=== PATIENT | male | born 1945 | race Caucasian/White ===

== ENCOUNTER 2018-09-13 11:13 | Inpatient (IN) | payer MEDICARE, BC ==
--- NOTE | 2018-09-13 11:54 | ED Physician Chart ---
ED Chief Complaint/HPI - Patient Information Date Seen:: 09/13/18 Time Seen:: 11:46 Chief Complaint:: agitation ams History of Present Illness:: 73 [facility] with [facility] who saw him on the ground pt very agitated and has severe dementia over the last 10 yrs , he can only answer mainly to his name he has ticks and makes blowing noises and not following any commands Allergies:: Allergies Allergy/AdvReac Type Severity Reaction Status Date / Time No Known Allergies Allergy Verified 09/13/18 11:36 ED Review of Systems - Review of Systems General/Constitutional: No fever Head: No headache Eyes: No loss of vision ENT: No earache Neck: No neck pain Cardio Vascular: No chest pain Pulmonary: No SOB GI: No vomiting Psychiatric: Anxiety ED Past Medical History - Past Medical History Past Medical History: HTN, DM, Dyslipidemia ED Physical Exam - Physical Examination Head: Atraumatic Eyes: Lids, conjuctiva normal Skin: No rash ENMT: External ears, nose nl Neck: Nontender Respiratory: Nl effort/Exclusion Cardio Vascular: No murmur, gallop, rubs GI: No tenderness/rebounding/guarding ED Septic Shock - . Is Septic Shock (SBP<90, OR Lactate>4 mmol\L) present?: No ED Reassessment (Disposition) - Reassessment Reassessment:: agitation dementia - Diagnosis Diagnosis:: as above - Patient Disposition Admitted to:: Med/Surg Condition at Disposition:: Stable
[2018-09-13 12:12] LABS: % BASOPHILS 0.3 % (0.0-2.0); % EOSINOPHILS 2.2 % (0.0-5.0); % LYMPHOCYTES 20.7 % (20.0-50.0); % MONOCYTES 8.4 % (2.0-10.0); % NEUTROPHILS 68.4 % (40.0-80.0); EOSINOPHILE ABSOLUTE 0.2 Th/cmm (0.1-0.4); HEMATOCRIT 38.4 % (41.0-60); HEMOGLOBIN 12.7 gm/dL (12-16); MEAN CELL VOLUME 96.2 fl (80-99); MEAN CORPUSCULAR HEMOGLOBIN 31.8 pg (27.0-31.0); MEAN PLATELET VOLUME 8.8 fl; MONOCYTE ABSOLUTE 0.8 Th/cmm (0.3-1.0); NEUTROPHILE ABSOLUTE 6.8 Th/cmm (1.8-8.0); PLATELET COUNT 133 Th/cmm (150-400); RED CELL DISTRIBUTION WIDTH 13.2 % (11.5-20.0); WHITE BLOOD COUNT 9.8 Th/cmm (4.8-10.8)
[2018-09-13 12:25] LABS: ALB/GLOB RATIO 1.3 (1.0-1.8); ALBUMIN 3.3 gm/dL (4.2-5.5); ALKALINE PHOSPHATASE 47 U/L (34-104); ANION GAP 16.9 (7.0-16.0); BILIRUBIN,TOTAL 0.9 mg/dL (0.3-1.0); BUN - UREA NITROGEN 22 mg/dL (7-25); CARBON DIOXIDE 22.7 mEq/L (21.0-31.0); CHLORIDE 108 mEq/L (98-107); CREATININE - SERUM 0.6 mg/dL (0.7-1.3); GLUCOSE 147 mg/dL (70-105); POTASSIUM SERUM 3.6 mEq/L (3.5-5.1); SGOT 12 U/L (13-39); SGPT/ALT 12 U/L (7-52); SODIUM SERUM 144 mEq/L (136-145); TOTAL PROTEIN,SERUM 5.9 gm/dL (6.0-8.3)
[2018-09-13 15:52] VITALS: BP 152/100
[2018-09-13] MEDS ORDERED: Maalox 30 mL Cup PO PRN (16:54)
[2018-09-13] MEDS ORDERED: Magnesium Hydroxide (MOM) 30 mL UDC PO PRN (16:54)
[2018-09-13 17:12] LABS: CHOLESTEROL 80 mg/dL (<200); HDL -HIGH DENSITY LIPOPROTEIN 29 mg/dL (23-92); TRIGLYCERIDES 78 mg/dL (<150)
[2018-09-13] MEDS ORDERED: Dextrose 50% 50 mL Abboject IVP PRN (20:23)
[2018-09-13] MEDS ORDERED: GLUCAGON HCl 1 MG KIT IM PRN (20:23)
[2018-09-13] MEDS ORDERED: D3 PO SCH (21:00)
[2018-09-13] MEDS ORDERED: BOSWELLIA SERRA PO SCH (21:00)
[2018-09-13] MEDS ORDERED: BIFIDOBACTERIUM INFANTIS 4 MG PO SCH (21:00)
[2018-09-13] MEDS ORDERED: GLUCOSAMINE PO SCH (21:00)
[2018-09-13] MEDS: INSULIN LISPRO SLIDING SCALE 100 UNITS/ML UNIT SUBQ SCH (21:51)
[2018-09-14] MEDS: Levothyroxine 0.05 Mg Tab PO SCH (06:47)
[2018-09-14] MEDS: INSULIN LISPRO SLIDING SCALE 100 UNITS/ML UNIT SUBQ SCH ×4 (06:54→21:52)
[2018-09-14 08:22] LABS: % BASOPHILS 0.2 % (0.0-2.0); % EOSINOPHILS 2.8 % (0.0-5.0); % LYMPHOCYTES 19.3 % (20.0-50.0); % MONOCYTES 8.5 % (2.0-10.0); % NEUTROPHILS 69.2 % (40.0-80.0); EOSINOPHILE ABSOLUTE 0.2 Th/cmm (0.1-0.4); HEMOGLOBIN 12.8 gm/dL (12-16); LYMPHOCYTE ABSOLUTE 1.4 Th/cmm (1.5-3.0); MEAN CELL VOLUME 95.4 fl (80-99); MEAN CORPUSCULAR HEMOGLOBIN 32.1 pg (27.0-31.0); MEAN CORPUSCULAR HGB CONC 33.6 pg (28.0-36.0); MEAN PLATELET VOLUME 8.3 fl; MONOCYTE ABSOLUTE 0.6 Th/cmm (0.3-1.0); NEUTROPHILE ABSOLUTE 5.3 Th/cmm (1.8-8.0); PLATELET COUNT 147 Th/cmm (150-400); RED BLOOD COUNT 3.98 Mil/cmm (3.80-5.80); RED CELL DISTRIBUTION WIDTH 12.9 % (11.5-20.0); WHITE BLOOD COUNT 7.5 Th/cmm (4.8-10.8)
[2018-09-14] MEDS ORDERED: INSULIN DETEMIR 5 UNIT SQ SCH (08:30)
[2018-09-14 08:39] LABS: ANION GAP 13.9 (7.0-16.0); BUN - UREA NITROGEN 22 mg/dL (7-25); CALCIUM SERUM 8.8 mg/dL (8.6-10.3); CARBON DIOXIDE 22.5 mEq/L (21.0-31.0); CHLORIDE 106 mEq/L (98-107); CREATININE - SERUM 0.7 mg/dL (0.7-1.3); GLUCOSE 133 mg/dL (70-105); POTASSIUM SERUM 3.4 mEq/L (3.5-5.1); SODIUM SERUM 139 mEq/L (136-145); URIC ACID 4.1 mg/dL (4.4-7.6)
[2018-09-14] MEDS: Insulin Glargine 100 units/ml 10ml Vial SUBQ SCH (08:41)
[2018-09-14 08:57] LABS: ESR SEDIMENTATION SED RATE 54 mm/hr (0-20)
[2018-09-14] MEDS ORDERED: Non-Formulary Item 1 EA (Atorvastatin Calcium [Lipitor] 40 MG) PO SCH (09:00)
[2018-09-14] MEDS: Multivitamin Tab PO SCH (09:16)
--- NOTE | 2018-09-14 09:55 | History and Physical ---
History of Present Illness - HPI Chief Complaint: 73 y/o male patient with severe Dementia was brought into ER due to Agitation. HPI: 73 y/o male patient with severe Dementia was admitted to [facility] due to Agitation. Patient has history of Dementia. Patient had an ER assessment and a complete workup was done. Patient was diagnosed with severe Dementia and Agitated. Patient will have a Psych consult and I will continue to follow, treat and monitor patient. Patient will continue present treatment plan as ordered. Vital Signs: Last Vital Signs Temp 97.3 F 09/14/18 06:19 Pulse 63 09/14/18 09:15 Resp 19 09/14/18 06:19 BP 129/96 09/14/18 09:15 Pulse Ox 95 09/14/18 06:19 Past Medical History Cardiovascular: Report: No Pertinent Hx Pulmonary: Report: No Pertinent Hx [employer]: Report: Dementia GI: Report: No Pertinent Hx Psych: Report: Other (Agitation) Musculoskeletal: Report: No Pertinent Hx Infectious Disease: Report: No Pertinent Hx Renal/: Report: No Pertinent Hx Endocrine: Report: No Pertinent Hx Dermatology: Report: No Pertinent Hx - Past Surgical History Past Surgical History: No pertinent Hx Family Medical History - Family Member Father Ethnicity: Non- Living Status: Hx Family Cancer: No Hx Family Coronary Artery Disease: No Hx Family Congestive Heart Failure: No Hx Family Hypertension: Yes Hx Family Stroke: No Hx Family Diabetes: Yes Hx Family Seizures: No Hx Family Dementia: Yes Hx Family AIDS: No Hx Family HIV: No Hx Family COPD: No Hx Family Hepatitis: No Hx Family Psychiatric Problems: Yes Hx Family Tuberculosis: No Other Medical History: Dementia Social History Smoke: No Alcohol: None Drugs: None Lives: [facility] Domestic Violence: Negative Health Maintenance Health Maintenance: Other (see chart.) - Medications Home Medications: Home Medication Medication Instructions Recorded Type Aspirin [Adult Aspirin] 81 mg PO HS 09/13/18 History Atorvastatin Calcium [Lipitor] 40 mg PO DAILY 09/13/18 History Bifidobacterium Infantis [Align] 4 mg PO HS 09/13/18 History Cyanocobalamin [Vitamin B12] 1,000 mcg PO DAILY 09/13/18 History Divalproex Sodium [Depakote] 250 mg PO BID 09/13/18 History Donepezil HCl [Aricept] 10 mg PO HS 09/13/18 History Finasteride [Proscar] 5 mg PO DAILY 09/13/18 History Glucosamine/D3/Boswellia Liza 1 tab PO HS 09/13/18 History [Osteo Bi-Flex Tablet] Insulin Detemir [Levemir Insulin] 5 units SQ QDPC 09/13/18 History Levothyroxine Sodium [Levoxyl] 50 mcg PO DAILY 09/13/18 History Loperamide HCl [Imodium A-D] 2 mg PO DAILY 09/13/18 History Lorazepam [Ativan] 1 mg PO QID 09/13/18 History Losartan Potassium 50 mg PO DAILY 09/13/18 History Memantine [Namenda] 10 mg PO DAILY 09/13/18 History Metformin HCl 500 mg PO BID 09/13/18 History Oxybutynin Chloride [Ditropan*] 5 mg PO HS 09/13/18 History Vitamin D 1,000 iu PO DAILY 09/13/18 History Other Medications: Please see medication reconciliation sheet. - Allergies Allergies/Adverse Reactions: Allergies Allergy/AdvReac Type Severity Reaction Status Date / Time lactose Allergy Verified 09/13/18 21:08 latex Allergy Verified 09/13/18 21:07 Review of Systems - Review of Systems Review of Systems: Patient has severe Dementia and is easily agitated. Constitutional: Report: No Significant Eyes: Report: No Significant ENT: Report: No Significant Respiratory: Report: No Significant Cardiovascular: Report: No Significant Gastrointestinal: Report: No Significant Genitourinary: Report: No Significant Musculoskeletal: Report: No Significant Skin: Report: No Significant Neurological: Report: Other (Agiatation and severe Dementia.) Physical Exam - Physical Exam HEENT: Report: Ears Nose Throat within normal limits Neck: Report: Within normal limits Cardiovascular Systems: Report: +s1/s2 noted Respiratory: Report: Breath Sounds are within normal limits Abdomen: Report: Non-tender to palpation Back: Report: Inspection of back is within normal limits. Extremities: Report: Non-tender to palpation. Skin: Report: Color of skin is within normal limits Neuro/Psych: Report: Other (Agitation.) - Lab Results All Lab Results last 24 hours: Laboratory Results - last 24 hr 09/13/18 09/13/18 09/13/18 12:04 12:04 12:04 WBC 9.8 RBC 4.00 Hgb 12.7 Hct 38.4 L MCV 96.2 MCH 31.8 H MCHC Differential 33.0 RDW 13.2 Plt Count 133 L MPV 8.8 Neutrophils % 68.4 Lymphocytes % 20.7 Monocytes % 8.4 Eosinophils % 2.2 Basophils % 0.3 ESR Sodium 144 Potassium 3.6 Chloride 108 H Carbon Dioxide 22.7 Anion Gap 16.9 H BUN 22 Creatinine 0.6 L Est GFR ( Amer) TNP Est GFR (Non-Af Amer) TNP BUN/Creatinine Ratio 36.7 Glucose 147 H Uric Acid Calcium 9.0 Total Bilirubin 0.9 AST 12 L ALT 12 Alkaline Phosphatase 47 Total Protein 5.9 L Albumin 3.3 L Globulin 2.6 Albumin/Globulin Ratio 1.3 Triglycerides Cholesterol LDL Cholesterol Direct HDL Cholesterol TSH 2.09 09/13/18 09/14/18 09/14/18 12:04 08:15 08:15 WBC 7.5 RBC 3.98 Hgb 12.8 Hct 38.0 L MCV 95.4 MCH 32.1 H MCHC Differential 33.6 RDW 12.9 Plt Count 147 L MPV 8.3 Neutrophils % 69.2 Lymphocytes % 19.3 L Monocytes % 8.5 Eosinophils % 2.8 Basophils % 0.2 ESR 54 H Sodium 139 Potassium 3.4 L Chloride 106 Carbon Dioxide 22.5 Anion Gap 13.9 BUN 22 Creatinine 0.7 Est GFR ( Amer) TNP Est GFR (Non-Af Amer) TNP BUN/Creatinine Ratio 31.4 Glucose 133 H Uric Acid 4.1 L Calcium 8.8 Total Bilirubin AST ALT Alkaline Phosphatase Total Protein Albumin Globulin Albumin/Globulin Ratio Triglycerides 78 Cholesterol 80 LDL Cholesterol Direct 40 L HDL Cholesterol 29 TSH - Assessment Assessment: Severe Dementia. Agitation. - Plan Plan: Continuation of care Continue present meds as directed Monitor labs, diet Psych consult Fall precaution Continue present treatment plan.
[2018-09-14] MEDS: Lactobacillus Rhamnosus GG 15 Billion CFU CAP.SPRINK PO SCH (11:00)
--- NOTE | 2018-09-14 13:36 | Diagnostic Imaging Report ---
EXAM: Right knee joint HISTORY: Pain COMPARISON: None FINDINGS: Multiple views of the right knee joint reviewed. The study demonstrates no evidence of fracture or dislocation. Mild degenerative changes with narrowing of joint space appreciated. There is no evidence for joint effusion. The patella is intact. If clinically indicated ligamentous or meniscal injury is considered MRI examination might be helpful. Vascular calcifications noted. IMPRESSION: Mild degenerative narrowing of the right knee joint space.
--- NOTE | 2018-09-14 13:37 | Diagnostic Imaging Report ---
Exam: Left knee joint HISTORY : Pain swelling Prior exam: None Findings: Multiple views of left knee joint reviewed. The study demonstrates no evidence for acute fracture dislocation. Mild degenerative narrowing of joint space appreciated. Vascular calcifications noted. If ligamentous or meniscal injury suspected MRI examination might be helpful. IMPRESSION: mild degenerative narrowing of the left knee joint space.
[2018-09-14] MEDS: Sulfamethoxazole/TMP 800/160mg Tab PO SCH (16:52)
--- NOTE | 2018-09-14 20:59 | Consultation ---
DATE OF CONSULTATION: 09/14/2018 INFECTIOUS DISEASE CONSULTATION REFERRING PHYSICIAN: Deb Altman M.D. REASON FOR CONSULTATION: Left knee cellulitis, left leg cellulitis. HISTORY OF PRESENT ILLNESS: The patient is a 73-year-old male with a past medical history of dementia, hypertension, diabetes mellitus type 2, and dyslipidemia, found to be agitated at [facility]. His saw him on the ground and very agitated. He is unable to give any history. On initial evaluation, the patient's temperature was 98.5 degree Fahrenheit and WBC count was 9800. It was noted that the patient's left knee and left leg was swollen and red. Cellulitis was diagnosed and the patient was started on Keflex. I was called for ID consultation. Levaquin was added. As per the staff, there is no significant change noted. No fever. PAST MEDICAL HISTORY: Diabetes mellitus type 2, hypertension, and dyslipidemia. ALLERGIES: LACTOSE AND LATEX. SOCIAL HISTORY: The patient lives in nursing facility. No history of smoking, alcohol, or drug use. FAMILY HISTORY: Not available. REVIEW OF SYSTEMS: As mentioned in HPI; otherwise, the patient is not giving any history. PHYSICAL EXAMINATION: VITAL SIGNS: Current vital signs shows temperature of 97.3, pulse of 63, respirations 19, and blood pressure of 129/96. GENERAL: The patient is comfortable, lying in the bed, not in acute distress. HEENT: Head is normocephalic, atraumatic. Oral cavity moist, pink tongue. NECK: Supple, no JVD, no carotid bruit. Trachea in midline. CHEST: Bilateral vesicular breath sounds. No crackles or wheezing. HEART: S1, S2 within normal limits. Regular rhythm. No murmur, no gallop. ABDOMEN: Soft, nontender, nondistended. Bowel sounds present. NEUROLOGIC: He is alert, awake, oriented x 3. EXTREMITIES: No cyanosis, no clubbing, no edema. The patient's left knee is mildly swollen and erythematous involving superficial skin. Lower leg is also mildly erythematous and swollen noticed mainly on the posterior part of lower leg. No open wound. CENTRAL NERVOUS SYSTEM: He is alert and awake. Aphasic. He is not communicating well. LABORATORY DATA: Current lab shows WBC count of 7500, hemoglobin of 12.9, hematocrit of 38.0, platelets are 147,000, and neutrophils 69%. Sodium is 139, potassium is 3.4, chloride is 106, bicarbonate is 22, BUN is 22, creatinine is 0.7, and glucose is 133. Blood culture 2 sets negative. IMPRESSION: 1. Left knee cellulitis. 2. Left leg cellulitis. 3. Diabetes mellitus type 2. 4. Hypertension. 5. Dementia. RECOMMENDATIONS: We will continue Keflex. Change Levaquin to Bactrim. Thank you, Dr. Deb Altman, for involving me in taking care of this patient. JOB# [id number]
--- NOTE | 2018-09-14 23:52 | Psychiatric Evaluation ---
DATE OF SERVICE: 09/13/2018 IDENTIFYING DATA: The patient is a 73-year-old resident of a long term facility. Information obtained by directly interviewing the patient as well as reviewing the admission papers. JUSTIFICATION FOR HOSPITALIZATION: The patient is admitted over here for acute agitation. Staff was spoken to. The patient is interviewed. The patient has not been able to verbalize much, but the patient has been however trying to reach to hit himself. The patient has to be put mittens to his both the hands. The patient is at this time, confused and demented, not verbalizing much at this time. PAST PSYCHIATRIC HISTORY: Details are not known. MEDICAL HISTORY: Physical examination is requested to be done by Dr. Altman. SUBSTANCE ABUSE HISTORY: None. PHYSICAL OR SEXUAL ABUSE HISTORY: None. LEGAL PROBLEMS: None at this time. STRENGTH AND ASSETS: The patient seems to be motivated. MENTAL STATUS EXAMINATION: The patient is a 73-year-old, looking his stated age, superficially cooperative. Eye contact is fair. Mood is noted to be irritable. The patient is nonverbal at this time. I am not able to decipher any of the paranoid delusions or auditory hallucinations at this time. The patient is reported to have been very agitated and has been getting aggressive at the facility. DIAGNOSTIC IMPRESSION: AXIS I: Psychotic disorder, not otherwise specified. AXIS IB: Dementia and behavioral changes, secondary trait. AXIS II: None. AXIS III: As per Dr. Altman. IMMEDIATE TREATMENT PLAN: The patient is going to be observed on the inpatient unit, provided with supportive psychotherapy. The patient is going to be closely monitored. I encouraged to verbalize the concerns rather than to act out. The patient is going to be closely monitored and continued or the p.r.n. doses of the Ambien and Ativan and the patient is also going to be placed on the valproic acid 250 mg 1 twice a day and the patient is going to be continued on close monitored with the behavior and then need for the antipsychotic medication is going to be addressed. JOB# [id number]
[2018-09-15] MEDS: Levothyroxine 0.05 Mg Tab PO SCH (06:36)
[2018-09-15] MEDS: INSULIN LISPRO SLIDING SCALE 100 UNITS/ML UNIT SUBQ SCH ×4 (06:49→21:16)
[2018-09-15] MEDS: Insulin Glargine 100 units/ml 10ml Vial SUBQ SCH (09:04)
[2018-09-15] MEDS: Sulfamethoxazole/TMP 800/160mg Tab PO SCH ×2 (09:05→17:46)
[2018-09-15] MEDS: Multivitamin Tab PO SCH (09:06)
[2018-09-15] MEDS: Lactobacillus Rhamnosus GG 15 Billion CFU CAP.SPRINK PO SCH (09:06)
--- NOTE | 2018-09-15 12:51 | Infectious Disease Prog Note ---
Infectious Disease Subjective - Review of Systems Service Date: 09/15/18 Subjective: Doing better, Infectious Disease Objective - Results Result Diagrams: 09/14/18 08:15 09/14/18 08:15 Recent Labs: Laboratory Last Values WBC 7.5 Th/cmm (4.8-10.8) 09/14/18 08:15 RBC 3.98 Mil/cmm (3.80-5.80) 09/14/18 08:15 Hgb 12.8 gm/dL (12-16) 09/14/18 08:15 Hct 38.0 % (41.0-60) L 09/14/18 08:15 MCV 95.4 fl (80-99) 09/14/18 08:15 MCH 32.1 pg (27.0-31.0) H 09/14/18 08:15 MCHC Differential 33.6 pg (28.0-36.0) 09/14/18 08:15 RDW 12.9 % (11.5-20.0) 09/14/18 08:15 Plt Count 147 Th/cmm (150-400) L 09/14/18 08:15 MPV 8.3 fl 09/14/18 08:15 Neutrophils % 69.2 % (40.0-80.0) 09/14/18 08:15 Lymphocytes % 19.3 % (20.0-50.0) L 09/14/18 08:15 Monocytes % 8.5 % (2.0-10.0) 09/14/18 08:15 Eosinophils % 2.8 % (0.0-5.0) 09/14/18 08:15 Basophils % 0.2 % (0.0-2.0) 09/14/18 08:15 ESR 54 mm/hr (0-20) H 09/14/18 08:15 Sodium 139 mEq/L (136-145) 09/14/18 08:15 Potassium 3.4 mEq/L (3.5-5.1) L 09/14/18 08:15 Chloride 106 mEq/L (98-107) 09/14/18 08:15 Carbon Dioxide 22.5 mEq/L (21.0-31.0) 09/14/18 08:15 Anion Gap 13.9 (7.0-16.0) 09/14/18 08:15 BUN 22 mg/dL (7-25) 09/14/18 08:15 Creatinine 0.7 mg/dL (0.7-1.3) 09/14/18 08:15 Est GFR ( Amer) TNP 09/14/18 08:15 Est GFR (Non-Af Amer) TNP 09/14/18 08:15 BUN/Creatinine Ratio 31.4 09/14/18 08:15 Glucose 133 mg/dL (70-105) H 09/14/18 08:15 Uric Acid 4.1 mg/dL (4.4-7.6) L 09/14/18 08:15 Calcium 8.8 mg/dL (8.6-10.3) 09/14/18 08:15 Total Bilirubin 0.9 mg/dL (0.3-1.0) 09/13/18 12:04 AST 12 U/L (13-39) L 09/13/18 12:04 ALT 12 U/L (7-52) 09/13/18 12:04 Alkaline Phosphatase 47 U/L (34-104) 09/13/18 12:04 Total Protein 5.9 gm/dL (6.0-8.3) L 09/13/18 12:04 Albumin 3.3 gm/dL (4.2-5.5) L 09/13/18 12:04 Globulin 2.6 gm/dL 09/13/18 12:04 Albumin/Globulin Ratio 1.3 (1.0-1.8) 09/13/18 12:04 Triglycerides 78 mg/dL (<150) 09/13/18 12:04 Cholesterol 80 mg/dL (<200) 09/13/18 12:04 LDL Cholesterol Direct 40 mg/dL (75-193) L 09/13/18 12:04 HDL Cholesterol 29 mg/dL (23-92) 09/13/18 12:04 TSH 2.09 uIU/ml (0.34-5.60) 09/13/18 12:04 - Physical Exam Vitals and I&O: Vital Signs Temp 97.6 F 09/15/18 06:38 Pulse 68 09/15/18 09:07 Resp 19 09/15/18 06:38 BP 151/82 09/15/18 09:07 Pulse Ox 95 09/15/18 06:38 Intake & Output 09/14/18 09/15/18 09/15/18 18:59 06:59 18:59 Intake Total 900 120 Balance 900 120 Intake: Oral 900 120 Other: # Voids 4 1 # Bowel Movements 1 0 Active Medications: Current Medications Acetaminophen (Tylenol) 650 mg PO Q4HR PRN PRN Reason: Mild Pain / Temp above 100 Stop: 11/12/18 16:53 Al Hydrox/Mg Hydrox/Simethicone (Maalox) 30 ml PO Q4HR PRN PRN Reason: GI DISTRESS Stop: 11/12/18 16:53 Aspirin (Ecotrin) 81 mg PO HS [facility] Stop: 11/12/18 20:59 Last Admin: 09/14/18 21:51 Dose: 81 mg Atorvastatin Calcium (Lipitor) 40 mg PO HS [facility] Stop: 11/13/18 20:59 Last Admin: 09/14/18 21:49 Dose: 40 mg Cephalexin Monohydrate (Keflex) 500 mg PO QID [facility] Stop: 11/12/18 20:59 Last Admin: 09/15/18 09:06 Dose: 500 mg Cyanocobalamin (Vitamin B12) 1,000 mcg PO DAILY [facility] Stop: 11/13/18 08:59 Last Admin: 09/15/18 09:04 Dose: 1,000 mcg Dextrose (D50w) 50 ml IVP PRN PRN PRN Reason: Blood Glucose less than 70 Stop: 11/12/18 20:22 Dextrose (Glutose 40%) 18.75 gm PO PRN PRN PRN Reason: Blood Glucose less than 70 Stop: 11/12/18 20:22 Divalproex Sodium (Depakote Dr) 250 mg PO BID [facility]; Protocol Stop: 11/12/18 16:59 Last Admin: 09/15/18 09:07 Dose: 250 mg Donepezil HCl (Aricept) 10 mg PO HS [facility] Stop: 11/12/18 20:59 Last Admin: 09/14/18 21:49 Dose: 10 mg Finasteride (Proscar) 5 mg PO DAILY [facility]; Protocol Stop: 11/13/18 08:59 Last Admin: 09/15/18 09:06 Dose: 5 mg Glucagon (Glucagen) 1 mg IM PRN PRN PRN Reason: Blood Glucose less than 70 Stop: 11/12/18 20:22 Insulin Glargine (Lantus Insulin) 5 units SUBQ QDPC [facility] Stop: 11/13/18 08:29 Last Admin: 09/15/18 09:04 Dose: Not Given Insulin Human Lispro (Humalog Insulin Sliding Scale) 0 units SUBQ ACHS [facility]; Protocol Stop: 11/12/18 20:59 Last Admin: 09/15/18 11:43 Dose: 2 units Lactobacillus Rhamnosus (Culturelle 15b) 1 each PO DAILY [facility] Stop: 11/13/18 10:59 Last Admin: 09/15/18 09:06 Dose: 1 each Levothyroxine Sodium (Synthroid) 0.05 mg PO DAILY@0730 [facility] Stop: 11/13/18 07:29 Last Admin: 09/15/18 06:36 Dose: 0.05 mg Loperamide HCl (Imodium) 2 mg PO DAILY [facility] Stop: 11/13/18 08:59 Last Admin: 09/15/18 09:07 Dose: 2 mg Lorazepam (Ativan) 0.5 mg PO Q4HR PRN; Protocol PRN Reason: Agitation Stop: 11/12/18 16:46 Lorazepam (Ativan) 1 mg PO QID [facility]; Protocol Stop: 11/13/18 12:59 Last Admin: 09/15/18 09:06 Dose: 1 mg Losartan Potassium (Cozaar) 50 mg PO DAILY [facility] Stop: 11/13/18 08:59 Last Admin: 09/15/18 09:07 Dose: 50 mg Magnesium Hydroxide (Milk Of Magnesia) 30 ml PO HS PRN PRN Reason: Constipation Memantine (Namenda) 10 mg PO DAILY [facility] Stop: 11/13/18 08:59 Last Admin: 09/15/18 09:07 Dose: 10 mg Metformin HCl (Glucophage) 500 mg PO BID [facility] Stop: 11/12/18 16:59 Last Admin: 09/15/18 09:06 Dose: 500 mg Miscellaneous (Glucosamine/D3/Boswellia Liza [Osteo Bi-Flex Tablet]) 1 tab PO HS [facility] Stop: 11/12/18 20:59 Multivitamins/Vitamin C (Theragran) 1 tab PO DAILY [facility] Stop: 11/13/18 08:59 Last Admin: 09/15/18 09:06 Dose: 1 tab Oxybutynin Chloride (Ditropan) 5 mg PO HS [facility] Stop: 11/12/18 20:59 Last Admin: 09/14/18 21:51 Dose: 5 mg Trimethoprim/Sulfamethoxazole (Bactrim Ds) 1 tab PO BID [facility] Stop: 11/13/18 16:59 Last Admin: 09/15/18 09:05 Dose: 1 tab Vitamin D (Vitamin D) 1,000 iu PO DAILY [facility] Stop: 11/13/18 08:59 Last Admin: 09/15/18 09:05 Dose: 1,000 iu Zolpidem Tartrate (Ambien) 5 mg PO HS PRN PRN Reason: Insomnia Stop: 11/12/18 16:53 Last Admin: 09/13/18 21:55 Dose: 5 mg General: no acute distress, well developed, well nourished HEENT: atraumatic, normocephalic, PERRLA, EOMI Neck: supple, no thyromegaly Cardiovascular: S1S2, regular Lungs: clear to auscultation bilaterally, clear to percussion Abdomen: soft, no tender, no distended Extremities: other (erythema has resolved, no more swelling.), no cyanosis, no clubbing, no edema Neurological: awake, alert Skin: intact Infectious Disease Assmt/Plan - Assessment Assessment: 1. Cellulitis of the left leg. 2. Cellulitis of left knee. - Plan Plan: Continue antibiotics for 5 more days.
--- NOTE | 2018-09-15 17:08 | Internal Medicine Prog Note ---
Internal Medicine Subjective - Subjective Service Date: 09/15/18 Patient seen and examined:: with staff Patient is:: awake Per staff patient has:: tolerating meds Internal Medicine Objective - Results Result Diagrams: 09/14/18 08:15 09/14/18 08:15 Recent Labs: Laboratory Last Values WBC 7.5 Th/cmm (4.8-10.8) 09/14/18 08:15 RBC 3.98 Mil/cmm (3.80-5.80) 09/14/18 08:15 Hgb 12.8 gm/dL (12-16) 09/14/18 08:15 Hct 38.0 % (41.0-60) L 09/14/18 08:15 MCV 95.4 fl (80-99) 09/14/18 08:15 MCH 32.1 pg (27.0-31.0) H 09/14/18 08:15 MCHC Differential 33.6 pg (28.0-36.0) 09/14/18 08:15 RDW 12.9 % (11.5-20.0) 09/14/18 08:15 Plt Count 147 Th/cmm (150-400) L 09/14/18 08:15 MPV 8.3 fl 09/14/18 08:15 Neutrophils % 69.2 % (40.0-80.0) 09/14/18 08:15 Lymphocytes % 19.3 % (20.0-50.0) L 09/14/18 08:15 Monocytes % 8.5 % (2.0-10.0) 09/14/18 08:15 Eosinophils % 2.8 % (0.0-5.0) 09/14/18 08:15 Basophils % 0.2 % (0.0-2.0) 09/14/18 08:15 ESR 54 mm/hr (0-20) H 09/14/18 08:15 Sodium 139 mEq/L (136-145) 09/14/18 08:15 Potassium 3.4 mEq/L (3.5-5.1) L 09/14/18 08:15 Chloride 106 mEq/L (98-107) 09/14/18 08:15 Carbon Dioxide 22.5 mEq/L (21.0-31.0) 09/14/18 08:15 Anion Gap 13.9 (7.0-16.0) 09/14/18 08:15 BUN 22 mg/dL (7-25) 09/14/18 08:15 Creatinine 0.7 mg/dL (0.7-1.3) 09/14/18 08:15 Est GFR ( Amer) TNP 09/14/18 08:15 Est GFR (Non-Af Amer) TNP 09/14/18 08:15 BUN/Creatinine Ratio 31.4 09/14/18 08:15 Glucose 133 mg/dL (70-105) H 09/14/18 08:15 Uric Acid 4.1 mg/dL (4.4-7.6) L 09/14/18 08:15 Calcium 8.8 mg/dL (8.6-10.3) 09/14/18 08:15 Total Bilirubin 0.9 mg/dL (0.3-1.0) 09/13/18 12:04 AST 12 U/L (13-39) L 09/13/18 12:04 ALT 12 U/L (7-52) 09/13/18 12:04 Alkaline Phosphatase 47 U/L (34-104) 09/13/18 12:04 Total Protein 5.9 gm/dL (6.0-8.3) L 09/13/18 12:04 Albumin 3.3 gm/dL (4.2-5.5) L 09/13/18 12:04 Globulin 2.6 gm/dL 09/13/18 12:04 Albumin/Globulin Ratio 1.3 (1.0-1.8) 09/13/18 12:04 Triglycerides 78 mg/dL (<150) 09/13/18 12:04 Cholesterol 80 mg/dL (<200) 09/13/18 12:04 LDL Cholesterol Direct 40 mg/dL (75-193) L 09/13/18 12:04 HDL Cholesterol 29 mg/dL (23-92) 09/13/18 12:04 TSH 2.09 uIU/ml (0.34-5.60) 09/13/18 12:04 - Physical Exam Vitals and I&O: Vital Signs Temp 98.6 F 09/15/18 14:00 Pulse 64 09/15/18 14:00 Resp 20 09/15/18 14:00 BP 133/66 09/15/18 14:00 Pulse Ox 97 09/15/18 14:00 Intake & Output 09/14/18 09/15/18 09/15/18 18:59 06:59 18:59 Intake Total 900 120 Balance 900 120 Intake: Oral 900 120 Other: # Voids 4 1 # Bowel Movements 1 0 Active Medications: Current Medications Acetaminophen (Tylenol) 650 mg PO Q4HR PRN PRN Reason: Mild Pain / Temp above 100 Stop: 11/12/18 16:53 Al Hydrox/Mg Hydrox/Simethicone (Maalox) 30 ml PO Q4HR PRN PRN Reason: GI DISTRESS Stop: 11/12/18 16:53 Aspirin (Ecotrin) 81 mg PO HS [facility] Stop: 11/12/18 20:59 Last Admin: 09/14/18 21:51 Dose: 81 mg Atorvastatin Calcium (Lipitor) 40 mg PO HS [facility] Stop: 11/13/18 20:59 Last Admin: 09/14/18 21:49 Dose: 40 mg Cephalexin Monohydrate (Keflex) 500 mg PO QID [facility] Stop: 11/12/18 20:59 Last Admin: 09/15/18 13:55 Dose: 500 mg Cyanocobalamin (Vitamin B12) 1,000 mcg PO DAILY [facility] Stop: 11/13/18 08:59 Last Admin: 09/15/18 09:04 Dose: 1,000 mcg Dextrose (D50w) 50 ml IVP PRN PRN PRN Reason: Blood Glucose less than 70 Stop: 11/12/18 20:22 Dextrose (Glutose 40%) 18.75 gm PO PRN PRN PRN Reason: Blood Glucose less than 70 Stop: 11/12/18 20:22 Divalproex Sodium (Depakote Dr) 250 mg PO BID [facility]; Protocol Stop: 11/12/18 16:59 Last Admin: 09/15/18 09:07 Dose: 250 mg Donepezil HCl (Aricept) 10 mg PO HS [facility] Stop: 11/12/18 20:59 Last Admin: 09/14/18 21:49 Dose: 10 mg Finasteride (Proscar) 5 mg PO DAILY [facility]; Protocol Stop: 11/13/18 08:59 Last Admin: 09/15/18 09:06 Dose: 5 mg Glucagon (Glucagen) 1 mg IM PRN PRN PRN Reason: Blood Glucose less than 70 Stop: 11/12/18 20:22 Insulin Glargine (Lantus Insulin) 5 units SUBQ QDPC [facility] Stop: 11/13/18 08:29 Last Admin: 09/15/18 09:04 Dose: Not Given Insulin Human Lispro (Humalog Insulin Sliding Scale) 0 units SUBQ ACHS [facility]; Protocol Stop: 11/12/18 20:59 Last Admin: 09/15/18 11:43 Dose: 2 units Lactobacillus Rhamnosus (Culturelle 15b) 1 each PO DAILY [facility] Stop: 11/13/18 10:59 Last Admin: 09/15/18 09:06 Dose: 1 each Levothyroxine Sodium (Synthroid) 0.05 mg PO DAILY@0730 [facility] Stop: 11/13/18 07:29 Last Admin: 09/15/18 06:36 Dose: 0.05 mg Loperamide HCl (Imodium) 2 mg PO DAILY [facility] Stop: 11/13/18 08:59 Last Admin: 09/15/18 09:07 Dose: 2 mg Lorazepam (Ativan) 0.5 mg PO Q4HR PRN; Protocol PRN Reason: Agitation Stop: 11/12/18 16:46 Lorazepam (Ativan) 1 mg PO QID [facility]; Protocol Stop: 11/13/18 12:59 Last Admin: 09/15/18 13:54 Dose: 1 mg Losartan Potassium (Cozaar) 50 mg PO DAILY [facility] Stop: 11/13/18 08:59 Last Admin: 09/15/18 09:07 Dose: 50 mg Magnesium Hydroxide (Milk Of Magnesia) 30 ml PO HS PRN PRN Reason: Constipation Memantine (Namenda) 10 mg PO DAILY [facility] Stop: 11/13/18 08:59 Last Admin: 09/15/18 09:07 Dose: 10 mg Metformin HCl (Glucophage) 500 mg PO BID [facility] Stop: 11/12/18 16:59 Last Admin: 09/15/18 09:06 Dose: 500 mg Miscellaneous (Glucosamine/D3/Boswellia Liza [Osteo Bi-Flex Tablet]) 1 tab PO HS [facility] Stop: 11/12/18 20:59 Multivitamins/Vitamin C (Theragran) 1 tab PO DAILY [facility] Stop: 11/13/18 08:59 Last Admin: 09/15/18 09:06 Dose: 1 tab Oxybutynin Chloride (Ditropan) 5 mg PO HS [facility] Stop: 11/12/18 20:59 Last Admin: 09/14/18 21:51 Dose: 5 mg Trimethoprim/Sulfamethoxazole (Bactrim Ds) 1 tab PO BID [facility] Stop: 11/13/18 16:59 Last Admin: 09/15/18 09:05 Dose: 1 tab Vitamin D (Vitamin D) 1,000 iu PO DAILY [facility] Stop: 11/13/18 08:59 Last Admin: 09/15/18 09:05 Dose: 1,000 iu Zolpidem Tartrate (Ambien) 5 mg PO HS PRN PRN Reason: Insomnia Stop: 11/12/18 16:53 Last Admin: 09/13/18 21:55 Dose: 5 mg HEENT: NC/AT, PERRLA Neck: Supple Lungs: CTAB Cardiovascular: RRR, Normal S1, Normal S2, without murmur Abdomen: soft, non-tender, non-distended, positive bowel sound Internal Medicine Assmt/Plan - Assessment Assessment: Severe Dementia. Agitation. cellulitis - Plan Plan: continue current plan of care
--- NOTE | 2018-09-16 04:21 | Progress Notes ---
DATE: 09/15/2018 PSYCHIATRIC PROGRESS NOTE SUBJECTIVE: Staff was spoken to. The patient is interviewed. Mood is noted to be irritable. Affect is constricted. The patient is not verbal and the patient has been trying to take a swing. The patient's coping skills at this time are noted to be very poor. The patient is currently on Depakote and has been able to tolerate the medication. ASSESSMENT: The patient is still impulsive and agitated. PLAN: To continue the patient with the supportive therapy and followup. [facility]# [id number]
[2018-09-16] MEDS: INSULIN LISPRO SLIDING SCALE 100 UNITS/ML UNIT SUBQ SCH ×4 (06:47→21:03)
[2018-09-16] MEDS: Levothyroxine 0.05 Mg Tab PO SCH (06:47)
[2018-09-16] MEDS: Insulin Glargine 100 units/ml 10ml Vial SUBQ SCH (08:30)
[2018-09-16] MEDS: Sulfamethoxazole/TMP 800/160mg Tab PO SCH ×2 (09:00→17:53)
[2018-09-16] MEDS: Multivitamin Tab PO SCH (09:00)
[2018-09-16] MEDS: Lactobacillus Rhamnosus GG 15 Billion CFU CAP.SPRINK PO SCH (11:37)
--- NOTE | 2018-09-16 13:26 | Internal Medicine Prog Note ---
Internal Medicine Subjective - Subjective Service Date: 09/16/18 Patient seen and examined:: with staff, chart reviewed Patient is:: awake, agitated Patient Complaints of:: other (Impulsive behavior.) Per staff patient has:: no adverse event, no episodes of fall, tolerating meds Internal Medicine Objective - Results Result Diagrams: 09/14/18 08:15 09/14/18 08:15 Recent Labs: Laboratory Last Values WBC 7.5 Th/cmm (4.8-10.8) 09/14/18 08:15 RBC 3.98 Mil/cmm (3.80-5.80) 09/14/18 08:15 Hgb 12.8 gm/dL (12-16) 09/14/18 08:15 Hct 38.0 % (41.0-60) L 09/14/18 08:15 MCV 95.4 fl (80-99) 09/14/18 08:15 MCH 32.1 pg (27.0-31.0) H 09/14/18 08:15 MCHC Differential 33.6 pg (28.0-36.0) 09/14/18 08:15 RDW 12.9 % (11.5-20.0) 09/14/18 08:15 Plt Count 147 Th/cmm (150-400) L 09/14/18 08:15 MPV 8.3 fl 09/14/18 08:15 Neutrophils % 69.2 % (40.0-80.0) 09/14/18 08:15 Lymphocytes % 19.3 % (20.0-50.0) L 09/14/18 08:15 Monocytes % 8.5 % (2.0-10.0) 09/14/18 08:15 Eosinophils % 2.8 % (0.0-5.0) 09/14/18 08:15 Basophils % 0.2 % (0.0-2.0) 09/14/18 08:15 ESR 54 mm/hr (0-20) H 09/14/18 08:15 Sodium 139 mEq/L (136-145) 09/14/18 08:15 Potassium 3.4 mEq/L (3.5-5.1) L 09/14/18 08:15 Chloride 106 mEq/L (98-107) 09/14/18 08:15 Carbon Dioxide 22.5 mEq/L (21.0-31.0) 09/14/18 08:15 Anion Gap 13.9 (7.0-16.0) 09/14/18 08:15 BUN 22 mg/dL (7-25) 09/14/18 08:15 Creatinine 0.7 mg/dL (0.7-1.3) 09/14/18 08:15 Est GFR ( Amer) TNP 09/14/18 08:15 Est GFR (Non-Af Amer) TNP 09/14/18 08:15 BUN/Creatinine Ratio 31.4 09/14/18 08:15 Glucose 133 mg/dL (70-105) H 09/14/18 08:15 POC Glucose 190 MG/DL (70 - 105) H 09/15/18 21:09 Uric Acid 4.1 mg/dL (4.4-7.6) L 09/14/18 08:15 Calcium 8.8 mg/dL (8.6-10.3) 09/14/18 08:15 Total Bilirubin 0.9 mg/dL (0.3-1.0) 09/13/18 12:04 AST 12 U/L (13-39) L 09/13/18 12:04 ALT 12 U/L (7-52) 09/13/18 12:04 Alkaline Phosphatase 47 U/L (34-104) 09/13/18 12:04 Total Protein 5.9 gm/dL (6.0-8.3) L 09/13/18 12:04 Albumin 3.3 gm/dL (4.2-5.5) L 09/13/18 12:04 Globulin 2.6 gm/dL 09/13/18 12:04 Albumin/Globulin Ratio 1.3 (1.0-1.8) 09/13/18 12:04 Triglycerides 78 mg/dL (<150) 09/13/18 12:04 Cholesterol 80 mg/dL (<200) 09/13/18 12:04 LDL Cholesterol Direct 40 mg/dL (75-193) L 09/13/18 12:04 HDL Cholesterol 29 mg/dL (23-92) 09/13/18 12:04 TSH 2.09 uIU/ml (0.34-5.60) 09/13/18 12:04 - Physical Exam Vitals and I&O: Vital Signs Temp 97.6 F 09/16/18 06:14 Pulse 88 09/16/18 11:39 Resp 18 09/16/18 06:14 BP 152/96 09/16/18 11:39 Pulse Ox 93 09/16/18 06:14 Intake & Output 09/15/18 09/16/18 09/16/18 18:59 06:59 18:59 Intake Total 920 Balance 920 Intake: Oral 920 Other: # Voids 2 # Bowel Movements 0 Active Medications: Current Medications Acetaminophen (Tylenol) 650 mg PO Q4HR PRN PRN Reason: Mild Pain / Temp above 100 Stop: 11/12/18 16:53 Al Hydrox/Mg Hydrox/Simethicone (Maalox) 30 ml PO Q4HR PRN PRN Reason: GI DISTRESS Stop: 11/12/18 16:53 Aspirin (Ecotrin) 81 mg PO [facility] Stop: 11/12/18 20:59 Last Admin: 09/15/18 21:57 Dose: 81 mg Atorvastatin Calcium (Lipitor) 40 mg PO HS [facility] Stop: 11/13/18 20:59 Last Admin: 09/15/18 21:57 Dose: 40 mg Cephalexin Monohydrate (Keflex) 500 mg PO QID [facility] Stop: 11/12/18 20:59 Last Admin: 09/16/18 09:30 Dose: 500 mg Cyanocobalamin (Vitamin B12) 1,000 mcg PO DAILY [facility] Stop: 11/13/18 08:59 Last Admin: 09/16/18 11:34 Dose: 1,000 mcg Dextrose (D50w) 50 ml IVP PRN PRN PRN Reason: Blood Glucose less than 70 Stop: 11/12/18 20:22 Dextrose (Glutose 40%) 18.75 gm PO PRN PRN PRN Reason: Blood Glucose less than 70 Stop: 11/12/18 20:22 Divalproex Sodium (Depakote Dr) 250 mg PO BID [facility]; Protocol Stop: 11/12/18 16:59 Last Admin: 09/16/18 09:00 Dose: 250 mg Donepezil HCl (Aricept) 10 mg PO [facility] Stop: 11/12/18 20:59 Last Admin: 09/15/18 21:57 Dose: 10 mg Finasteride (Proscar) 5 mg PO DAILY [facility]; Protocol Stop: 11/13/18 08:59 Last Admin: 09/16/18 09:30 Dose: 5 mg Glucagon (Glucagen) 1 mg IM PRN PRN PRN Reason: Blood Glucose less than 70 Stop: 11/12/18 20:22 Insulin Glargine (Lantus Insulin) 5 units SUBQ QDPC [facility] Stop: 11/13/18 08:29 Last Admin: 09/16/18 08:30 Dose: Not Given Insulin Human Lispro (Humalog Insulin Sliding Scale) 0 units SUBQ ACHS [facility]; Protocol Stop: 11/12/18 20:59 Last Admin: 09/16/18 11:30 Dose: Not Given Lactobacillus Rhamnosus (Culturelle 15b) 1 each PO DAILY [facility] Stop: 11/13/18 10:59 Last Admin: 09/16/18 11:37 Dose: 1 each Levothyroxine Sodium (Synthroid) 0.05 mg PO DAILY@0730 [facility] Stop: 11/13/18 07:29 Last Admin: 09/16/18 06:47 Dose: 0.05 mg Loperamide HCl (Imodium) 2 mg PO DAILY [facility] Stop: 11/13/18 08:59 Last Admin: 09/16/18 09:30 Dose: 2 mg Lorazepam (Ativan) 0.5 mg PO Q4HR PRN; Protocol PRN Reason: Agitation Stop: 11/12/18 16:46 Last Admin: 09/16/18 09:30 Dose: 0.5 mg Lorazepam (Ativan) 1 mg PO QID [facility]; Protocol Stop: 11/13/18 12:59 Last Admin: 09/16/18 11:39 Dose: 1 mg Losartan Potassium (Cozaar) 50 mg PO DAILY [facility] Stop: 11/13/18 08:59 Last Admin: 09/16/18 11:39 Dose: 50 mg Magnesium Hydroxide (Milk Of Magnesia) 30 ml PO HS PRN PRN Reason: Constipation Memantine (Namenda) 10 mg PO DAILY [facility] Stop: 11/13/18 08:59 Last Admin: 09/16/18 09:00 Dose: 10 mg Metformin HCl (Glucophage) 500 mg PO BID [facility] Stop: 11/12/18 16:59 Last Admin: 09/16/18 09:00 Dose: 500 mg Miscellaneous (Glucosamine/D3/Boswellia Liza [Osteo Bi-Flex Tablet]) 1 tab PO HS [facility] Stop: 11/12/18 20:59 Multivitamins/Vitamin C (Theragran) 1 tab PO DAILY [facility] Stop: 11/13/18 08:59 Last Admin: 09/16/18 09:00 Dose: 1 tab Oxybutynin Chloride (Ditropan) 5 mg PO HS [facility] Stop: 11/12/18 20:59 Last Admin: 09/15/18 21:57 Dose: 5 mg Trimethoprim/Sulfamethoxazole (Bactrim Ds) 1 tab PO BID [facility] Stop: 11/13/18 16:59 Last Admin: 09/16/18 09:00 Dose: 1 tab Vitamin D (Vitamin D) 1,000 iu PO DAILY [facility] Stop: 11/13/18 08:59 Last Admin: 09/16/18 09:00 Dose: 1,000 iu Zolpidem Tartrate (Ambien) 5 mg PO HS PRN PRN Reason: Insomnia Stop: 11/12/18 16:53 Last Admin: 09/13/18 21:55 Dose: 5 mg Physical Exam: 73 y/ patient is very irate and has been trying to take a swing, coping skills at times is very poor. General: other (Agitated.) HEENT: NC/AT, PERRLA Neck: Supple Lungs: CTAB Cardiovascular: RRR, Normal S1, Normal S2, without murmur Abdomen: soft, non-tender, non-distended, positive bowel sound Extremities: clear Neurological: no change Internal Medicine Assmt/Plan - Assessment Assessment: Severe Dementia. Agitation. Aggressive behavior. - Plan Plan: Continuation of care Continue present meds as directed Monitor labs, diet Psych consult Fall precaution Continue present treatment plan. Nutritional Asmnt/Malnutr-PDOC - Dietary Evaluation Malnutrition Findings (Please click <Entered> for more info): see orders.
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
--- NOTE | 2018-09-17 05:25 | Progress Notes ---
DATE: 09/16/[address] Dos Santos. SUBJECTIVE: The patient was resting in bed, alert, but confused. The patient was able to give his first name. The patient was not able to say why he is here, what had happened to him. The patient was not able to say where he was prior to coming here. The patient was not able to say how old he is and if he has any children. The patient did not respond when asked how he has been eating and sleeping or how he is feeling whether he is happy or sad. There was minimum verbal response. The patient has a mitten on his left hand, which the patient would bite on the mitten trying to remove it at times. OBJECTIVE: The staff reported that the patient has mitten on his hand because he tends to put his hand inside his pants and scratching his groin area. The patient also has cellulitis in his lower extremity and currently is on antibiotic for that. Staff reported that the patient is confused and not able to respond appropriately to most of the questions. The patient might say a word or two here and there. Staff reported that the patient is on 5150 hold, which will today. 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 The patient might have tactile hallucination leading to his scratching of his groin area. CURRENT MEDICATION: The patient is on Depakote 250 mg b.i.d., Aricept 10 mg at bedtime, Ativan 0.5 mg q. 4 hours p.r.n. as well as 1 mg q.i.d., Namenda 10 mg daily, Ambien 5 mg at bedtime p.r.n. PLAN: We will monitor the patient at this time. We will consider increasing Depakote for poor impulse control. We will monitor the patient for any psychotic symptoms and will use antipsychotic if appropriate. We will place the patient on 5250 for gravely disabled. JOB# [id number]
[2018-09-17] MEDS: Levothyroxine 0.05 Mg Tab PO SCH (06:37)
[2018-09-17] MEDS: INSULIN LISPRO SLIDING SCALE 100 UNITS/ML UNIT SUBQ SCH ×4 (06:38→20:30)
[2018-09-17] MEDS: Insulin Glargine 100 units/ml 10ml Vial SUBQ SCH (08:30)
[2018-09-17] MEDS: Lactobacillus Rhamnosus GG 15 Billion CFU CAP.SPRINK PO SCH (09:00)
[2018-09-17] MEDS: Sulfamethoxazole/TMP 800/160mg Tab PO SCH ×2 (09:00→18:11)
--- NOTE | 2018-09-17 10:18 | Internal Medicine Prog Note ---
Internal Medicine Subjective - Subjective Service Date: 09/17/18 Patient seen and examined:: with staff Patient is:: awake, agitated Patient Complaints of:: other (Irritable mood, confused, selectively mute, slow and delayed.) Per staff patient has:: no adverse event, no episodes of fall, tolerating meds Internal Medicine Objective - Results Result Diagrams: 09/14/18 08:15 09/14/18 08:15 Recent Labs: Laboratory Last Values WBC 7.5 Th/cmm (4.8-10.8) 09/14/18 08:15 RBC 3.98 Mil/cmm (3.80-5.80) 09/14/18 08:15 Hgb 12.8 gm/dL (12-16) 09/14/18 08:15 Hct 38.0 % (41.0-60) L 09/14/18 08:15 MCV 95.4 fl (80-99) 09/14/18 08:15 MCH 32.1 pg (27.0-31.0) H 09/14/18 08:15 MCHC Differential 33.6 pg (28.0-36.0) 09/14/18 08:15 RDW 12.9 % (11.5-20.0) 09/14/18 08:15 Plt Count 147 Th/cmm (150-400) L 09/14/18 08:15 MPV 8.3 fl 09/14/18 08:15 Neutrophils % 69.2 % (40.0-80.0) 09/14/18 08:15 Lymphocytes % 19.3 % (20.0-50.0) L 09/14/18 08:15 Monocytes % 8.5 % (2.0-10.0) 09/14/18 08:15 Eosinophils % 2.8 % (0.0-5.0) 09/14/18 08:15 Basophils % 0.2 % (0.0-2.0) 09/14/18 08:15 ESR 54 mm/hr (0-20) H 09/14/18 08:15 Sodium 139 mEq/L (136-145) 09/14/18 08:15 Potassium 3.4 mEq/L (3.5-5.1) L 09/14/18 08:15 Chloride 106 mEq/L (98-107) 09/14/18 08:15 Carbon Dioxide 22.5 mEq/L (21.0-31.0) 09/14/18 08:15 Anion Gap 13.9 (7.0-16.0) 09/14/18 08:15 BUN 22 mg/dL (7-25) 09/14/18 08:15 Creatinine 0.7 mg/dL (0.7-1.3) 09/14/18 08:15 Est GFR ( Amer) TNP 09/14/18 08:15 Est GFR (Non-Af Amer) TNP 09/14/18 08:15 BUN/Creatinine Ratio 31.4 09/14/18 08:15 Glucose 133 mg/dL (70-105) H 09/14/18 08:15 POC Glucose 190 MG/DL (70 - 105) H 09/15/18 21:09 Uric Acid 4.1 mg/dL (4.4-7.6) L 09/14/18 08:15 Calcium 8.8 mg/dL (8.6-10.3) 09/14/18 08:15 Total Bilirubin 0.9 mg/dL (0.3-1.0) 09/13/18 12:04 AST 12 U/L (13-39) L 09/13/18 12:04 ALT 12 U/L (7-52) 09/13/18 12:04 Alkaline Phosphatase 47 U/L (34-104) 09/13/18 12:04 Total Protein 5.9 gm/dL (6.0-8.3) L 09/13/18 12:04 Albumin 3.3 gm/dL (4.2-5.5) L 09/13/18 12:04 Globulin 2.6 gm/dL 09/13/18 12:04 Albumin/Globulin Ratio 1.3 (1.0-1.8) 09/13/18 12:04 Triglycerides 78 mg/dL (<150) 09/13/18 12:04 Cholesterol 80 mg/dL (<200) 09/13/18 12:04 LDL Cholesterol Direct 40 mg/dL (75-193) L 09/13/18 12:04 HDL Cholesterol 29 mg/dL (23-92) 09/13/18 12:04 TSH 2.09 uIU/ml (0.34-5.60) 09/13/18 12:04 - Physical Exam Vitals and I&O: Vital Signs Temp 98.1 F 09/17/18 06:40 Pulse 80 09/17/18 06:40 Resp 20 09/17/18 06:40 BP 116/76 09/17/18 06:40 Pulse Ox 96 09/17/18 06:40 Intake & Output 09/16/18 09/17/18 09/17/18 18:59 06:59 18:59 Intake Total 800 110 Balance 800 110 Intake: Oral 800 110 Other: # Voids 3 2 # Bowel Movements 1 0 Active Medications: Current Medications Acetaminophen (Tylenol) 650 mg PO Q4HR PRN PRN Reason: Mild Pain / Temp above 100 Stop: 11/12/18 16:53 Al Hydrox/Mg Hydrox/Simethicone (Maalox) 30 ml PO Q4HR PRN PRN Reason: GI DISTRESS Stop: 11/12/18 16:53 Aspirin (Ecotrin) 81 mg PO [facility] Stop: 11/12/18 20:59 Last Admin: 09/16/18 21:02 Dose: 81 mg Atorvastatin Calcium (Lipitor) 40 mg PO HS [facility] Stop: 11/13/18 20:59 Last Admin: 09/16/18 21:02 Dose: 40 mg Cephalexin Monohydrate (Keflex) 500 mg PO QID [facility] Stop: 11/12/18 20:59 Last Admin: 09/16/18 21:03 Dose: 500 mg Cyanocobalamin (Vitamin B12) 1,000 mcg PO DAILY [facility] Stop: 11/13/18 08:59 Last Admin: 09/16/18 11:34 Dose: 1,000 mcg Dextrose (D50w) 50 ml IVP PRN PRN PRN Reason: Blood Glucose less than 70 Stop: 11/12/18 20:22 Dextrose (Glutose 40%) 18.75 gm PO PRN PRN PRN Reason: Blood Glucose less than 70 Stop: 11/12/18 20:22 Divalproex Sodium (Depakote Dr) 250 mg PO BID [facility]; Protocol Stop: 11/12/18 16:59 Last Admin: 09/16/18 17:51 Dose: 250 mg Donepezil HCl (Aricept) 10 mg PO [facility] Stop: 11/12/18 20:59 Last Admin: 09/16/18 21:03 Dose: 10 mg Finasteride (Proscar) 5 mg PO DAILY [facility]; Protocol Stop: 11/13/18 08:59 Last Admin: 09/16/18 09:30 Dose: 5 mg Glucagon (Glucagen) 1 mg IM PRN PRN PRN Reason: Blood Glucose less than 70 Stop: 11/12/18 20:22 Insulin Glargine (Lantus Insulin) 5 units SUBQ QDPC [facility] Stop: 11/13/18 08:29 Last Admin: 09/16/18 08:30 Dose: Not Given Insulin Human Lispro (Humalog Insulin Sliding Scale) 0 units SUBQ ACHS [facility]; Protocol Stop: 11/12/18 20:59 Last Admin: 09/17/18 06:38 Dose: Not Given Lactobacillus Rhamnosus (Culturelle 15b) 1 each PO DAILY [facility] Stop: 11/13/18 10:59 Last Admin: 09/16/18 11:37 Dose: 1 each Levothyroxine Sodium (Synthroid) 0.05 mg PO DAILY@0730 [facility] Stop: 11/13/18 07:29 Last Admin: 09/17/18 06:37 Dose: 0.05 mg Loperamide HCl (Imodium) 2 mg PO DAILY [facility] Stop: 11/13/18 08:59 Last Admin: 09/16/18 09:30 Dose: 2 mg Lorazepam (Ativan) 0.5 mg PO Q4HR PRN; Protocol PRN Reason: Agitation Stop: 11/12/18 16:46 Last Admin: 09/16/18 09:30 Dose: 0.5 mg Lorazepam (Ativan) 1 mg PO QID [facility]; Protocol Stop: 11/13/18 12:59 Last Admin: 09/16/18 21:03 Dose: 1 mg Losartan Potassium (Cozaar) 50 mg PO DAILY [facility] Stop: 11/13/18 08:59 Last Admin: 09/16/18 11:39 Dose: 50 mg Magnesium Hydroxide (Milk Of Magnesia) 30 ml PO HS PRN PRN Reason: Constipation Memantine (Namenda) 10 mg PO DAILY [facility] Stop: 11/13/18 08:59 Last Admin: 09/16/18 09:00 Dose: 10 mg Metformin HCl (Glucophage) 500 mg PO BID [facility] Stop: 11/12/18 16:59 Last Admin: 09/16/18 17:53 Dose: 500 mg Multivitamins/Vitamin C (Theragran) 1 tab PO DAILY [facility] Stop: 11/13/18 08:59 Last Admin: 09/16/18 09:00 Dose: 1 tab Oxybutynin Chloride (Ditropan) 5 mg PO HS [facility] Stop: 11/12/18 20:59 Last Admin: 09/16/18 21:03 Dose: 5 mg Trimethoprim/Sulfamethoxazole (Bactrim Ds) 1 tab PO BID [facility] Stop: 11/13/18 16:59 Last Admin: 09/16/18 17:53 Dose: 1 tab Vitamin D (Vitamin D) 1,000 iu PO DAILY [facility] Stop: 11/13/18 08:59 Last Admin: 09/16/18 09:00 Dose: 1,000 iu Zolpidem Tartrate (Ambien) 5 mg PO HS PRN PRN Reason: Insomnia Stop: 11/12/18 16:53 Last Admin: 09/13/18 21:55 Dose: 5 mg Physical Exam: 73 y/o male patient is very irritable and is currently fitted with mittens on both hands he was hitting himself and was tr emily to hit staff. General: other (Agitated and very Confused.) HEENT: NC/AT, PERRLA Neck: Supple Lungs: CTAB Cardiovascular: RRR, Normal S1, Normal S2, without murmur Abdomen: soft, non-tender, non-distended, positive bowel sound Extremities: clear Neurological: no change Internal Medicine Assmt/Plan - Assessment Assessment: Severe Dementia. Agitation. Aggressive behavior. - Plan Plan: Continuation of care Continue present meds as directed Monitor labs, diet Psych followup Fall precaution Continue present care management Nutritional Asmnt/Malnutr-PDOC - Dietary Evaluation Malnutrition Findings (Please click <Entered> for more info): Nutritional Asmnt/Malnutrition Start: 09/16/18 14: 27 Text: Status: Complete Freq: Protocol: Document 09/16/18 14:28 KATIE (Rec: 09/16/18 15:12 KATIE [email or web address]) Nutritional Asmnt/Malnutrition Patient General Information Nutritional Screening Moderate Risk Diagnosis psychosis NOS Pertinent Medical Hx/Surgical Hx HTN, DM, dyslipidemia Subjective Information Pt seen lying in bed, confused , non-verbal. Per EMR, PO intake 75-100%. Current Diet Order/ Nutrition Support [facility], cardiac, no lactose Pertinent Medications lipitor, vit B12, lantus, insulin, humalog, culturelle, synthroid, glucophage, theragran Pertinent Labs 09/14 K 3.4, Glucose 133, POC 190 09/13 Cl 108, Cr 0.6, glucose 147, alb 3.3 Nutritional Hx/Data Height 1.7 m Height (Calculated Centimeters) 170.2 Current Weight (lbs) 74.389 kg Weight (Calculated Kilograms) 74.4 Weight (Calculated Grams) 16112.1 [place] Body Weight 148 Body Mass Index (BMI) 25.7 GI Symptoms GI Symptoms None Last BM 09/15 Difficult in: None Food Allergies Yes: lactose Skin Integrity/Comment: dryness Current %PO Good (75-100%) Estimated Nutritional Goals BEE in Kcals: Using Current wt Calories/Kcals/Kg 23-27 Kcals Calculated 9708-1537 Protein: Using Current wt Protein g/k.8 Protein Calculated 60 Fluid: ml 1725-2025ml (1ml/kcal) Nutritional Problem No current Nutrition Prob Problem N/A Malnutrition Alert Is there a minimum of two criteria No selected? Query Text:Check all the applicable criteria. A minimum of two criteria are recommended for diagnosis of either severe or non-severe malnutrition. Malnutrition Related to Morbid Obesity Malnutrition related to morbid obesity No Intervention/Recommendation Comments 1. Continue with CCHO, cardiac , no lactose diet as ordered. 2. Monitor PO intake, wt, labs and skin integrity 3. F/U as low risk in 7 days Expected Outcomes/Goals Expected Outcomes/Goals 1. PO intake to meet at least 75% of nutritional needs. 2. Wt stability, skin to remain intact, labs to approach WNL.
--- NOTE | 2018-09-17 11:55 | Infectious Disease Prog Note ---
Infectious Disease Subjective - Review of Systems Service Date: 09/17/18 Subjective: Doing better, Infectious Disease Objective - Results Result Diagrams: 09/14/18 08:15 09/14/18 08:15 Recent Labs: Laboratory Last Values WBC 7.5 Th/cmm (4.8-10.8) 09/14/18 08:15 RBC 3.98 Mil/cmm (3.80-5.80) 09/14/18 08:15 Hgb 12.8 gm/dL (12-16) 09/14/18 08:15 Hct 38.0 % (41.0-60) L 09/14/18 08:15 MCV 95.4 fl (80-99) 09/14/18 08:15 MCH 32.1 pg (27.0-31.0) H 09/14/18 08:15 MCHC Differential 33.6 pg (28.0-36.0) 09/14/18 08:15 RDW 12.9 % (11.5-20.0) 09/14/18 08:15 Plt Count 147 Th/cmm (150-400) L 09/14/18 08:15 MPV 8.3 fl 09/14/18 08:15 Neutrophils % 69.2 % (40.0-80.0) 09/14/18 08:15 Lymphocytes % 19.3 % (20.0-50.0) L 09/14/18 08:15 Monocytes % 8.5 % (2.0-10.0) 09/14/18 08:15 Eosinophils % 2.8 % (0.0-5.0) 09/14/18 08:15 Basophils % 0.2 % (0.0-2.0) 09/14/18 08:15 ESR 54 mm/hr (0-20) H 09/14/18 08:15 Sodium 139 mEq/L (136-145) 09/14/18 08:15 Potassium 3.4 mEq/L (3.5-5.1) L 09/14/18 08:15 Chloride 106 mEq/L (98-107) 09/14/18 08:15 Carbon Dioxide 22.5 mEq/L (21.0-31.0) 09/14/18 08:15 Anion Gap 13.9 (7.0-16.0) 09/14/18 08:15 BUN 22 mg/dL (7-25) 09/14/18 08:15 Creatinine 0.7 mg/dL (0.7-1.3) 09/14/18 08:15 Est GFR ( Amer) TNP 09/14/18 08:15 Est GFR (Non-Af Amer) TNP 09/14/18 08:15 BUN/Creatinine Ratio 31.4 09/14/18 08:15 Glucose 133 mg/dL (70-105) H 09/14/18 08:15 POC Glucose 190 MG/DL (70 - 105) H 09/15/18 21:09 Uric Acid 4.1 mg/dL (4.4-7.6) L 09/14/18 08:15 Calcium 8.8 mg/dL (8.6-10.3) 09/14/18 08:15 Total Bilirubin 0.9 mg/dL (0.3-1.0) 09/13/18 12:04 AST 12 U/L (13-39) L 09/13/18 12:04 ALT 12 U/L (7-52) 09/13/18 12:04 Alkaline Phosphatase 47 U/L (34-104) 09/13/18 12:04 Total Protein 5.9 gm/dL (6.0-8.3) L 09/13/18 12:04 Albumin 3.3 gm/dL (4.2-5.5) L 09/13/18 12:04 Globulin 2.6 gm/dL 09/13/18 12:04 Albumin/Globulin Ratio 1.3 (1.0-1.8) 09/13/18 12:04 Triglycerides 78 mg/dL (<150) 09/13/18 12:04 Cholesterol 80 mg/dL (<200) 09/13/18 12:04 LDL Cholesterol Direct 40 mg/dL (75-193) L 09/13/18 12:04 HDL Cholesterol 29 mg/dL (23-92) 09/13/18 12:04 TSH 2.09 uIU/ml (0.34-5.60) 09/13/18 12:04 - Physical Exam Vitals and I&O: Vital Signs Temp 98.1 F 09/17/18 06:40 Pulse 80 09/17/18 09:00 Resp 20 09/17/18 06:40 BP 116/76 09/17/18 09:00 Pulse Ox 96 09/17/18 06:40 Intake & Output 09/16/18 09/17/18 09/17/18 18:59 06:59 18:59 Intake Total 800 110 Balance 800 110 Intake: Oral 800 110 Other: # Voids 3 2 # Bowel Movements 1 0 Active Medications: Current Medications Acetaminophen (Tylenol) 650 mg PO Q4HR PRN PRN Reason: Mild Pain / Temp above 100 Stop: 11/12/18 16:53 Al Hydrox/Mg Hydrox/Simethicone (Maalox) 30 ml PO Q4HR PRN PRN Reason: GI DISTRESS Stop: 11/12/18 16:53 Aspirin (Ecotrin) 81 mg PO HS [facility] Stop: 11/12/18 20:59 Last Admin: 09/16/18 21:02 Dose: 81 mg Atorvastatin Calcium (Lipitor) 40 mg PO HS [facility] Stop: 11/13/18 20:59 Last Admin: 09/16/18 21:02 Dose: 40 mg Cephalexin Monohydrate (Keflex) 500 mg PO QID [facility] Stop: 11/12/18 20:59 Last Admin: 09/17/18 09:00 Dose: 500 mg Cyanocobalamin (Vitamin B12) 1,000 mcg PO DAILY [facility] Stop: 11/13/18 08:59 Last Admin: 09/17/18 11:53 Dose: 1,000 mcg Dextrose (D50w) 50 ml IVP PRN PRN PRN Reason: Blood Glucose less than 70 Stop: 11/12/18 20:22 Dextrose (Glutose 40%) 18.75 gm PO PRN PRN PRN Reason: Blood Glucose less than 70 Stop: 11/12/18 20:22 Divalproex Sodium (Depakote Dr) 250 mg PO BID [facility]; Protocol Stop: 11/12/18 16:59 Last Admin: 09/16/18 17:51 Dose: 250 mg Donepezil HCl (Aricept) 10 mg PO HS [facility] Stop: 11/12/18 20:59 Last Admin: 09/16/18 21:03 Dose: 10 mg Finasteride (Proscar) 5 mg PO DAILY [facility]; Protocol Stop: 11/13/18 08:59 Last Admin: 09/17/18 09:00 Dose: 5 mg Glucagon (Glucagen) 1 mg IM PRN PRN PRN Reason: Blood Glucose less than 70 Stop: 11/12/18 20:22 Insulin Glargine (Lantus Insulin) 5 units SUBQ QDPC [facility] Stop: 11/13/18 08:29 Last Admin: 09/17/18 08:30 Dose: Not Given Insulin Human Lispro (Humalog Insulin Sliding Scale) 0 units SUBQ ACHS [facility]; Protocol Stop: 11/12/18 20:59 Last Admin: 09/17/18 06:38 Dose: Not Given Lactobacillus Rhamnosus (Culturelle 15b) 1 each PO DAILY [facility] Stop: 11/13/18 10:59 Last Admin: 09/17/18 09:00 Dose: 1 each Levothyroxine Sodium (Synthroid) 0.05 mg PO DAILY@0730 [facility] Stop: 11/13/18 07:29 Last Admin: 09/17/18 06:37 Dose: 0.05 mg Loperamide HCl (Imodium) 2 mg PO DAILY [facility] Stop: 11/13/18 08:59 Last Admin: 09/17/18 11:53 Dose: 2 mg Lorazepam (Ativan) 0.5 mg PO Q4HR PRN; Protocol PRN Reason: Agitation Stop: 11/12/18 16:46 Last Admin: 09/16/18 09:30 Dose: 0.5 mg Lorazepam (Ativan) 1 mg PO QID [facility]; Protocol Stop: 11/13/18 12:59 Last Admin: 09/16/18 21:03 Dose: 1 mg Losartan Potassium (Cozaar) 50 mg PO DAILY [facility] Stop: 11/13/18 08:59 Last Admin: 09/17/18 09:00 Dose: 50 mg Magnesium Hydroxide (Milk Of Magnesia) 30 ml PO HS PRN PRN Reason: Constipation Memantine (Namenda) 10 mg PO DAILY [facility] Stop: 11/13/18 08:59 Last Admin: 09/17/18 09:00 Dose: 10 mg Metformin HCl (Glucophage) 500 mg PO BID [facility] Stop: 11/12/18 16:59 Last Admin: 09/17/18 09:00 Dose: 500 mg Multivitamins/Vitamin C (Theragran) 1 tab PO DAILY [facility] Stop: 11/13/18 08:59 Last Admin: 09/16/18 09:00 Dose: 1 tab Oxybutynin Chloride (Ditropan) 5 mg PO HS [facility] Stop: 11/12/18 20:59 Last Admin: 09/16/18 21:03 Dose: 5 mg Trimethoprim/Sulfamethoxazole (Bactrim Ds) 1 tab PO BID [facility] Stop: 11/13/18 16:59 Last Admin: 09/17/18 09:00 Dose: 1 tab Vitamin D (Vitamin D) 1,000 iu PO DAILY [facility] Stop: 11/13/18 08:59 Last Admin: 09/17/18 09:00 Dose: 1,000 iu Zolpidem Tartrate (Ambien) 5 mg PO HS PRN PRN Reason: Insomnia Stop: 11/12/18 16:53 Last Admin: 09/13/18 21:55 Dose: 5 mg General: no acute distress, well developed, well nourished HEENT: atraumatic, normocephalic, PERRLA, EOMI Neck: supple, no thyromegaly Cardiovascular: S1S2, regular Lungs: clear to auscultation bilaterally, clear to percussion Abdomen: soft, no tender, no distended Extremities: other (improved erythema and swelling of the left knee and leg.), no cyanosis, no clubbing, no edema Neurological: awake, alert Skin: intact Infectious Disease Assmt/Plan - Assessment Assessment: 1. Cellulitis of the left leg. 2. Cellulitis of left knee. - Plan Plan: Continue antibiotics for 4 more days. Nutritional Asmnt/Malnutr-PDOC - Dietary Evaluation Malnutrition Findings (Please click <Entered> for more info): Nutritional Asmnt/Malnutrition Start: 09/16/18 14: 27 Text: Status: Complete Freq: Protocol: Document 09/16/18 14:28 LCHENG (Rec: 09/16/18 15:12 LCHENG [email or web address]) Nutritional Asmnt/Malnutrition Patient General Information Nutritional Screening Moderate Risk Diagnosis psychosis NOS Pertinent Medical Hx/Surgical Hx HTN, DM, dyslipidemia Subjective Information Pt seen lying in bed, confused , non-verbal. Per EMR, PO intake 75-100%. Current Diet Order/ Nutrition Support CCHO, cardiac, no lactose Pertinent Medications lipitor, vit B12, lantus, insulin, humalog, culturelle, synthroid, glucophage, theragran Pertinent Labs 09/14 K 3.4, Glucose 133, POC 190 09/13 Cl 108, Cr 0.6, glucose 147, alb 3.3 Nutritional Hx/Data Height 1.7 m Height (Calculated Centimeters) 170.2 Current Weight (lbs) 74.389 kg Weight (Calculated Kilograms) 74.4 Weight (Calculated Grams) 95827.1 [place] Body Weight 148 Body Mass Index (BMI) 25.7 GI Symptoms GI Symptoms None Last BM 09/15 Difficult in: None Food Allergies Yes: lactose Skin Integrity/Comment: dryness Current %PO Good (75-100%) Estimated Nutritional Goals BEE in Kcals: Using Current wt Calories/Kcals/Kg 23-27 Kcals Calculated 9332-6834 Protein: Using Current wt Protein g/k.8 Protein Calculated 60 Fluid: ml 1725-2025ml (1ml/kcal) Nutritional Problem No current Nutrition Prob Problem N/A Malnutrition Alert Is there a minimum of two criteria No selected? Query Text:Check all the applicable criteria. A minimum of two criteria are recommended for diagnosis of either severe or non-severe malnutrition. Malnutrition Related to Morbid Obesity Malnutrition related to morbid obesity No Intervention/Recommendation Comments 1. Continue with CCHO, cardiac , no lactose diet as ordered. 2. Monitor PO intake, wt, labs and skin integrity 3. F/U as low risk in 7 days Expected Outcomes/Goals Expected Outcomes/Goals 1. PO intake to meet at least 75% of nutritional needs. 2. Wt stability, skin to remain intact, labs to approach WNL.
[2018-09-17] MEDS: Multivitamin Tab PO SCH (11:57)
[2018-09-18] MEDS: Levothyroxine 0.05 Mg Tab PO SCH (06:30)
[2018-09-18] MEDS: INSULIN LISPRO SLIDING SCALE 100 UNITS/ML UNIT SUBQ SCH ×4 (06:31→21:09)
[2018-09-18] MEDS: Insulin Glargine 100 units/ml 10ml Vial SUBQ SCH (10:17)
[2018-09-18] MEDS: Sulfamethoxazole/TMP 800/160mg Tab PO SCH ×2 (10:18→16:30)
[2018-09-18] MEDS: Lactobacillus Rhamnosus GG 15 Billion CFU CAP.SPRINK PO SCH (10:18)
[2018-09-18] MEDS: Multivitamin Tab PO SCH (10:19)
--- NOTE | 2018-09-18 15:46 | Progress Notes ---
DATE: 09/17/2018 SUBJECTIVE: The patient was resting in bed. The patient was somewhat alert, but somewhat restless. The patient made some sound at times. The patient was hitting his mittened hands together on and off. The patient did not respond verbally to any questions today. OBJECTIVE: The patient appeared to be somewhat restless. The staff reported that the patient noted to be agitated at times. The patient requires mittens to keep him from putting his hands inside his pants to scratch his groin area. The staff reported that his has been supportive and has been visiting on a daily basis. The staff reported that the patient does not verbalize very much. ASSESSMENT: The patient continued to have episodes of agitation. Currently, the patient is on Depakote 250 mg p.o. b.i.d. PLAN: We will increase Depakote to 375 mg p.o. b.i.d. for poor impulse control. We will monitor the patient's response to the medication. [facility]# [id number]
--- NOTE | 2018-09-18 16:51 | Internal Medicine Prog Note ---
Internal Medicine Subjective - Subjective Service Date: 09/18/18 Patient is:: awake, agitated Patient Complaints of:: other (Irritable mood, confused, selectively mute, slow and delayed.) Per staff patient has:: no adverse event, no episodes of fall, tolerating meds Internal Medicine Objective - Results Result Diagrams: 09/14/18 08:15 09/14/18 08:15 Recent Labs: Laboratory Last Values WBC 7.5 Th/cmm (4.8-10.8) 09/14/18 08:15 RBC 3.98 Mil/cmm (3.80-5.80) 09/14/18 08:15 Hgb 12.8 gm/dL (12-16) 09/14/18 08:15 Hct 38.0 % (41.0-60) L 09/14/18 08:15 MCV 95.4 fl (80-99) 09/14/18 08:15 MCH 32.1 pg (27.0-31.0) H 09/14/18 08:15 MCHC Differential 33.6 pg (28.0-36.0) 09/14/18 08:15 RDW 12.9 % (11.5-20.0) 09/14/18 08:15 Plt Count 147 Th/cmm (150-400) L 09/14/18 08:15 MPV 8.3 fl 09/14/18 08:15 Neutrophils % 69.2 % (40.0-80.0) 09/14/18 08:15 Lymphocytes % 19.3 % (20.0-50.0) L 09/14/18 08:15 Monocytes % 8.5 % (2.0-10.0) 09/14/18 08:15 Eosinophils % 2.8 % (0.0-5.0) 09/14/18 08:15 Basophils % 0.2 % (0.0-2.0) 09/14/18 08:15 ESR 54 mm/hr (0-20) H 09/14/18 08:15 Sodium 139 mEq/L (136-145) 09/14/18 08:15 Potassium 3.4 mEq/L (3.5-5.1) L 09/14/18 08:15 Chloride 106 mEq/L (98-107) 09/14/18 08:15 Carbon Dioxide 22.5 mEq/L (21.0-31.0) 09/14/18 08:15 Anion Gap 13.9 (7.0-16.0) 09/14/18 08:15 BUN 22 mg/dL (7-25) 09/14/18 08:15 Creatinine 0.7 mg/dL (0.7-1.3) 09/14/18 08:15 Est GFR ( Amer) TNP 09/14/18 08:15 Est GFR (Non-Af Amer) TNP 09/14/18 08:15 BUN/Creatinine Ratio 31.4 09/14/18 08:15 Glucose 133 mg/dL (70-105) H 09/14/18 08:15 POC Glucose 190 MG/DL (70 - 105) H 09/15/18 21:09 Uric Acid 4.1 mg/dL (4.4-7.6) L 09/14/18 08:15 Calcium 8.8 mg/dL (8.6-10.3) 09/14/18 08:15 Total Bilirubin 0.9 mg/dL (0.3-1.0) 09/13/18 12:04 AST 12 U/L (13-39) L 09/13/18 12:04 ALT 12 U/L (7-52) 09/13/18 12:04 Alkaline Phosphatase 47 U/L (34-104) 09/13/18 12:04 Total Protein 5.9 gm/dL (6.0-8.3) L 09/13/18 12:04 Albumin 3.3 gm/dL (4.2-5.5) L 09/13/18 12:04 Globulin 2.6 gm/dL 09/13/18 12:04 Albumin/Globulin Ratio 1.3 (1.0-1.8) 09/13/18 12:04 Triglycerides 78 mg/dL (<150) 09/13/18 12:04 Cholesterol 80 mg/dL (<200) 09/13/18 12:04 LDL Cholesterol Direct 40 mg/dL (75-193) L 09/13/18 12:04 HDL Cholesterol 29 mg/dL (23-92) 09/13/18 12:04 TSH 2.09 uIU/ml (0.34-5.60) 09/13/18 12:04 - Physical Exam Vitals and I&O: Vital Signs Temp 97.7 F 09/18/18 14:00 Pulse 59 09/18/18 14:00 Resp 18 09/18/18 14:00 BP 109/69 09/18/18 14:00 Pulse Ox 97 09/18/18 14:00 Intake & Output 09/17/18 09/18/18 09/18/18 18:59 06:59 18:59 Intake Total 960 180 Balance 960 180 Intake: Oral 960 180 Other: # Voids 4 2 # Bowel Movements 1 0 Active Medications: Current Medications Acetaminophen (Tylenol) 650 mg PO Q4HR PRN PRN Reason: Mild Pain / Temp above 100 Stop: 11/12/18 16:53 Al Hydrox/Mg Hydrox/Simethicone (Maalox) 30 ml PO Q4HR PRN PRN Reason: GI DISTRESS Stop: 11/12/18 16:53 Aspirin (Ecotrin) 81 mg PO HS [facility] Stop: 11/12/18 20:59 Last Admin: 09/17/18 20:29 Dose: 81 mg Atorvastatin Calcium (Lipitor) 40 mg PO HS [facility] Stop: 11/13/18 20:59 Last Admin: 09/17/18 20:29 Dose: 40 mg Cephalexin Monohydrate (Keflex) 500 mg PO QID [facility] Stop: 11/12/18 20:59 Last Admin: 09/18/18 16:30 Dose: 500 mg Cyanocobalamin (Vitamin B12) 1,000 mcg PO DAILY [facility] Stop: 11/13/18 08:59 Last Admin: 09/18/18 10:19 Dose: 1,000 mcg Dextrose (D50w) 50 ml IVP PRN PRN PRN Reason: Blood Glucose less than 70 Stop: 11/12/18 20:22 Dextrose (Glutose 40%) 18.75 gm PO PRN PRN PRN Reason: Blood Glucose less than 70 Stop: 11/12/18 20:22 Divalproex Sodium (Depakote Dr) 375 mg PO BID [facility]; Protocol Stop: 11/17/18 08:59 Donepezil HCl (Aricept) 10 mg PO HS [facility] Stop: 11/12/18 20:59 Last Admin: 09/17/18 20:30 Dose: 10 mg Finasteride (Proscar) 5 mg PO DAILY [facility]; Protocol Stop: 11/13/18 08:59 Last Admin: 09/18/18 10:19 Dose: 5 mg Glucagon (Glucagen) 1 mg IM PRN PRN PRN Reason: Blood Glucose less than 70 Stop: 11/12/18 20:22 Insulin Glargine (Lantus Insulin) 5 units SUBQ QDPC [facility] Stop: 11/13/18 08:29 Last Admin: 09/18/18 10:17 Dose: Not Given Insulin Human Lispro (Humalog Insulin Sliding Scale) 0 units SUBQ ACHS [facility]; Protocol Stop: 11/12/18 20:59 Last Admin: 09/18/18 16:31 Dose: 2 units Lactobacillus Rhamnosus (Culturelle 15b) 1 each PO DAILY [facility] Stop: 11/13/18 10:59 Last Admin: 09/18/18 10:18 Dose: 1 each Levothyroxine Sodium (Synthroid) 0.05 mg PO DAILY@0730 [facility] Stop: 11/13/18 07:29 Last Admin: 09/18/18 06:30 Dose: 0.05 mg Loperamide HCl (Imodium) 2 mg PO DAILY [facility] Stop: 11/13/18 08:59 Last Admin: 09/18/18 10:18 Dose: 2 mg Lorazepam (Ativan) 0.5 mg PO Q4HR PRN; Protocol PRN Reason: Agitation Stop: 11/12/18 16:46 Last Admin: 09/17/18 11:55 Dose: 0.5 mg Lorazepam (Ativan) 1 mg PO QID [facility]; Protocol Stop: 11/13/18 12:59 Last Admin: 09/18/18 16:30 Dose: 1 mg Losartan Potassium (Cozaar) 50 mg PO DAILY [facility] Stop: 11/13/18 08:59 Last Admin: 09/18/18 10:21 Dose: 50 mg Magnesium Hydroxide (Milk Of Magnesia) 30 ml PO HS PRN PRN Reason: Constipation Memantine (Namenda) 10 mg PO DAILY [facility] Stop: 11/13/18 08:59 Last Admin: 09/18/18 10:19 Dose: 10 mg Metformin HCl (Glucophage) 500 mg PO BID [facility] Stop: 11/12/18 16:59 Last Admin: 09/18/18 16:30 Dose: 500 mg Multivitamins/Vitamin C (Theragran) 1 tab PO DAILY [facility] Stop: 11/13/18 08:59 Last Admin: 09/18/18 10:19 Dose: 1 tab Oxybutynin Chloride (Ditropan) 5 mg PO HS [facility] Stop: 11/12/18 20:59 Last Admin: 09/17/18 20:30 Dose: 5 mg Trimethoprim/Sulfamethoxazole (Bactrim Ds) 1 tab PO BID [facility] Stop: 11/13/18 16:59 Last Admin: 09/18/18 16:30 Dose: 1 tab Vitamin D (Vitamin D) 1,000 iu PO DAILY [facility] Stop: 11/13/18 08:59 Last Admin: 09/18/18 10:18 Dose: 1,000 iu Zolpidem Tartrate (Ambien) 5 mg PO HS PRN PRN Reason: Insomnia Stop: 11/12/18 16:53 Last Admin: 09/13/18 21:55 Dose: 5 mg General: other (Agitated and very Confused.) HEENT: NC/AT, PERRLA Neck: Supple Lungs: CTAB Cardiovascular: RRR, Normal S1, Normal S2, without murmur Abdomen: soft, non-tender, non-distended, positive bowel sound Extremities: clear Neurological: no change Internal Medicine Assmt/Plan - Assessment Assessment: Severe Dementia. Agitation. cellulitis - Plan Plan: continue current plan of care Nutritional Asmnt/Malnutr-PDOC - Dietary Evaluation Malnutrition Findings (Please click <Entered> for more info): Nutritional Asmnt/Malnutrition Start: 09/16/18 14: 27 Text: Status: Complete Freq: Protocol: Document 09/16/18 14:28 LCHENG (Rec: 09/16/18 15:12 LCLISAG [id number]) Nutritional Asmnt/Malnutrition Patient General Information Nutritional Screening Moderate Risk Diagnosis psychosis NOS Pertinent Medical Hx/Surgical Hx HTN, DM, dyslipidemia Subjective Information Pt seen lying in bed, confused , non-verbal. Per EMR, PO intake 75-100%. Current Diet Order/ Nutrition Support CCHO, cardiac, no lactose Pertinent Medications lipitor, vit B12, lantus, insulin, humalog, culturelle, synthroid, glucophage, theragran Pertinent Labs 09/14 K 3.4, Glucose 133, POC 190 09/13 Cl 108, Cr 0.6, glucose 147, alb 3.3 Nutritional Hx/Data Height 5 ft 7 in Height (Calculated Centimeters) 170.2 Current Weight (lbs) 164 lb Weight (Calculated Kilograms) 74.4 Weight (Calculated Grams) 31655.1 [place] Body Weight 148 Body Mass Index (BMI) 25.7 GI Symptoms GI Symptoms None Last BM 09/15 Difficult in: None Food Allergies Yes: lactose Skin Integrity/Comment: dryness Current %PO Good (75-100%) Estimated Nutritional Goals BEE in Kcals: Using Current wt Calories/Kcals/Kg 23-27 Kcals Calculated 2937-4336 Protein: Using Current wt Protein g/k.8 Protein Calculated 60 Fluid: ml 1725-2024ml (1ml/kcal) Nutritional Problem No current Nutrition Prob Problem N/A Malnutrition Alert Is there a minimum of two criteria No selected? Query Text:Check all the applicable criteria. A minimum of two criteria are recommended for diagnosis of either severe or non-severe malnutrition. Malnutrition Related to Morbid Obesity Malnutrition related to morbid obesity No Intervention/Recommendation Comments 1. Continue with CCHO, cardiac , no lactose diet as ordered. 2. Monitor PO intake, wt, labs and skin integrity 3. F/U as low risk in 7 days Expected Outcomes/Goals Expected Outcomes/Goals 1. PO intake to meet at least 75% of nutritional needs. 2. Wt stability, skin to remain intact, labs to approach WNL.
[2018-09-19] MEDS: INSULIN LISPRO SLIDING SCALE 100 UNITS/ML UNIT SUBQ SCH ×4 (06:35→20:56)
[2018-09-19] MEDS: Levothyroxine 0.05 Mg Tab PO SCH (06:35)
[2018-09-19] MEDS: Insulin Glargine 100 units/ml 10ml Vial SUBQ SCH (09:48)
[2018-09-19] MEDS: Lactobacillus Rhamnosus GG 15 Billion CFU CAP.SPRINK PO SCH (09:49)
[2018-09-19] MEDS: Sulfamethoxazole/TMP 800/160mg Tab PO SCH ×2 (09:51→16:23)
[2018-09-19] MEDS: Multivitamin Tab PO SCH (09:51)
--- NOTE | 2018-09-19 13:13 | Progress Notes ---
DATE: SUBJECTIVE: The patient was resting in bed with mittens on both hands. The patient was somewhat restless, at times tried to bite at the mitten, tried to remove them. The patient was pretty much nonverbal. The patient did not respond when asked how he is doing. When asked what is his name, the patient was able to say "Daryl." The patient was not able to give his last name. When asked if he has any visitor, the patient did not respond. When asked how he has been eating and sleeping, again, the patient did not respond. Unable to get any information when asked if he has any auditory or visual hallucination or delusion. OBJECTIVE: The patient was calm and cooperative. The patient maintained adequate eye contact. The patient was restless at times. The patient bites at his glove trying to pull them off of his hands. The staff reported that the patient has been okay, not aggressive, but pretty much nonverbal. The staff reported that his was here earlier today and not able to communicate with him. The staff reported that the said that when he was at the facility where he was prior to coming here, the patient was pretty much nonverbal as well. ASSESSMENT: Impulse control disorder, not otherwise specified; Alzheimer dementia with behavioral disturbance. PLAN: We will continue the patient on current medication, Depakote was increased to 375 mg b.i.d. yesterday. We will monitor the patient for any attempt to put his hands inside his pants. JOB# [id number]
--- NOTE | 2018-09-19 23:28 | Progress Notes ---
DATE: SUBJECTIVE: The patient was resting in bed, alert with mittens on both hands. The patient continued to be restless, trying to remove the mittens. The patient would move his body and at times would bang his body against the bed. The patient was unable to respond to any questions. The patient did not respond when I asked how he has been eating and sleeping. The patient was unable to respond, when asked why he tried to put his hands inside his pants. OBJECTIVE: The patient continued to be somewhat restless with frequent movement, turning and banging his body against the mattress. Staff reported that the patient was not able to respond verbally to any questions, most of the time. At times, the patient would give 1 word respond. His appetite fluctuates. The patient seems to be sleeping okay. ASSESSMENT: Impulse control disorder, not otherwise specified; personality change due to medical condition, Alzheimer dementia. PLAN: We will discontinue Ativan 1 mg q.i.d. We will start the patient on Klonopin 1 mg b.i.d. because of its longer half-life it seems to it might help calm the patient better than the short-acting Ativan. We will monitor the patient's respond to the medication. JOB# [id number]
--- NOTE | 2018-09-20 03:02 | Progress Notes ---
DATE: 09/18/2018 PSYCHOLOGY PROGRESS NOTE SUBJECTIVE: The patient is seen and is interviewed. Case is discussed with staff. The staff reports the patient has episodes of becoming restless. The patient continues to have his hands mittened. The patient was having difficulty responding verbally to the clinical questions. The patient was able to nod yes or no at times. OBJECTIVE: Mood is guarded and mildly irritable. Affect is blunted. Thought process shows to be confused. The patient did not answer questions about hallucinations or delusions. The patient's behavior continues to be easily agitated and frustrated. ASSESSMENT AND PLAN: According to record review, the patient's has been visiting almost daily and is supportive. The patient's impulse control persists. The patient still continues to strike out at himself; however, this has lessened. We provided de-escalation and limit setting. We provided remotivation for the patient to become compliant with his care and treatment. We provided stress management to increase the patient's frustration tolerance. We provided cognitive behavioral therapy for the patient to increase his impulse control with respect to self-harm. We continued to provide multiple opportunities on a daily basis for the patient to verbally contract for safety. We will follow up in 2 days to continue the present treatment if the patient is still admitted on the unit. JOB# [id number] JIM
[2018-09-20] MEDS: Levothyroxine 0.05 Mg Tab PO SCH (06:34)
[2018-09-20] MEDS: INSULIN LISPRO SLIDING SCALE 100 UNITS/ML UNIT SUBQ SCH ×4 (06:34→21:04)
[2018-09-20] MEDS: Insulin Glargine 100 units/ml 10ml Vial SUBQ SCH (09:06)
[2018-09-20] MEDS: Sulfamethoxazole/TMP 800/160mg Tab PO SCH ×2 (09:26→16:31)
[2018-09-20] MEDS: Multivitamin Tab PO SCH (09:26)
[2018-09-20] MEDS: Lactobacillus Rhamnosus GG 15 Billion CFU CAP.SPRINK PO SCH (09:27)
--- NOTE | 2018-09-20 11:44 | Internal Medicine Prog Note ---
Internal Medicine Subjective - Subjective Patient seen and examined:: chart reviewed Patient is:: awake, confused (easily irritable but better, denies pain ), other Patient Complaints of:: other (Irritable mood, confused, selectively mute, slow and delayed.) Per staff patient has:: no adverse event, no episodes of fall, tolerating meds Internal Medicine Objective - Results Result Diagrams: 09/14/18 08:15 09/14/18 08:15 Recent Labs: Laboratory Last Values WBC 7.5 Th/cmm (4.8-10.8) 09/14/18 08:15 RBC 3.98 Mil/cmm (3.80-5.80) 09/14/18 08:15 Hgb 12.8 gm/dL (12-16) 09/14/18 08:15 Hct 38.0 % (41.0-60) L 09/14/18 08:15 MCV 95.4 fl (80-99) 09/14/18 08:15 MCH 32.1 pg (27.0-31.0) H 09/14/18 08:15 MCHC Differential 33.6 pg (28.0-36.0) 09/14/18 08:15 RDW 12.9 % (11.5-20.0) 09/14/18 08:15 Plt Count 147 Th/cmm (150-400) L 09/14/18 08:15 MPV 8.3 fl 09/14/18 08:15 Neutrophils % 69.2 % (40.0-80.0) 09/14/18 08:15 Lymphocytes % 19.3 % (20.0-50.0) L 09/14/18 08:15 Monocytes % 8.5 % (2.0-10.0) 09/14/18 08:15 Eosinophils % 2.8 % (0.0-5.0) 09/14/18 08:15 Basophils % 0.2 % (0.0-2.0) 09/14/18 08:15 ESR 54 mm/hr (0-20) H 09/14/18 08:15 Sodium 139 mEq/L (136-145) 09/14/18 08:15 Potassium 3.4 mEq/L (3.5-5.1) L 09/14/18 08:15 Chloride 106 mEq/L (98-107) 09/14/18 08:15 Carbon Dioxide 22.5 mEq/L (21.0-31.0) 09/14/18 08:15 Anion Gap 13.9 (7.0-16.0) 09/14/18 08:15 BUN 22 mg/dL (7-25) 09/14/18 08:15 Creatinine 0.7 mg/dL (0.7-1.3) 09/14/18 08:15 Est GFR ( Amer) TNP 09/14/18 08:15 Est GFR (Non-Af Amer) TNP 09/14/18 08:15 BUN/Creatinine Ratio 31.4 09/14/18 08:15 Glucose 133 mg/dL (70-105) H 09/14/18 08:15 POC Glucose 131 MG/DL (70 - 105) H 09/20/18 06:15 Uric Acid 4.1 mg/dL (4.4-7.6) L 09/14/18 08:15 Calcium 8.8 mg/dL (8.6-10.3) 09/14/18 08:15 Total Bilirubin 0.9 mg/dL (0.3-1.0) 09/13/18 12:04 AST 12 U/L (13-39) L 09/13/18 12:04 ALT 12 U/L (7-52) 09/13/18 12:04 Alkaline Phosphatase 47 U/L (34-104) 09/13/18 12:04 Total Protein 5.9 gm/dL (6.0-8.3) L 09/13/18 12:04 Albumin 3.3 gm/dL (4.2-5.5) L 09/13/18 12:04 Globulin 2.6 gm/dL 09/13/18 12:04 Albumin/Globulin Ratio 1.3 (1.0-1.8) 09/13/18 12:04 Triglycerides 78 mg/dL (<150) 09/13/18 12:04 Cholesterol 80 mg/dL (<200) 09/13/18 12:04 LDL Cholesterol Direct 40 mg/dL (75-193) L 09/13/18 12:04 HDL Cholesterol 29 mg/dL (23-92) 09/13/18 12:04 TSH 2.09 uIU/ml (0.34-5.60) 09/13/18 12:04 - Physical Exam Vitals and I&O: Vital Signs Temp 97.6 F 09/20/18 06:39 Pulse 76 09/20/18 09:28 Resp 19 09/20/18 08:00 BP 124/67 09/20/18 09:28 Pulse Ox 76 09/20/18 06:39 Intake & Output 09/19/18 09/20/18 09/20/18 18:59 06:59 18:59 Intake Total 960 Balance 960 Intake: Oral 960 Other: # Voids 4 3 # Bowel Movements 1 2 Active Medications: Current Medications Acetaminophen (Tylenol) 650 mg PO Q4HR PRN PRN Reason: Mild Pain / Temp above 100 Stop: 11/12/18 16:53 Al Hydrox/Mg Hydrox/Simethicone (Maalox) 30 ml PO Q4HR PRN PRN Reason: GI DISTRESS Stop: 11/12/18 16:53 Aspirin (Ecotrin) 81 mg PO HS [facility] Stop: 11/12/18 20:59 Last Admin: 09/19/18 20:56 Dose: 81 mg Atorvastatin Calcium (Lipitor) 40 mg PO HS [facility] Stop: 11/13/18 20:59 Last Admin: 09/19/18 20:55 Dose: 40 mg Cyanocobalamin (Vitamin B12) 1,000 mcg PO DAILY [facility] Stop: 11/13/18 08:59 Last Admin: 09/20/18 09:29 Dose: 1,000 mcg Dextrose (D50w) 50 ml IVP PRN PRN PRN Reason: Blood Glucose less than 70 Stop: 11/12/18 20:22 Dextrose (Glutose 40%) 18.75 gm PO PRN PRN PRN Reason: Blood Glucose less than 70 Stop: 11/12/18 20:22 Divalproex Sodium (Depakote Dr) 375 mg PO BID [facility]; Protocol Stop: 11/17/18 08:59 Donepezil HCl (Aricept) 10 mg PO HS [facility] Stop: 11/12/18 20:59 Last Admin: 09/19/18 20:55 Dose: 10 mg Finasteride (Proscar) 5 mg PO DAILY [facility]; Protocol Stop: 11/13/18 08:59 Last Admin: 09/20/18 09:26 Dose: 5 mg Glucagon (Glucagen) 1 mg IM PRN PRN PRN Reason: Blood Glucose less than 70 Stop: 11/12/18 20:22 Insulin Glargine (Lantus Insulin) 5 units SUBQ QDPC [facility] Stop: 11/13/18 08:29 Last Admin: 09/20/18 09:06 Dose: 5 units Insulin Human Lispro (Humalog Insulin Sliding Scale) 0 units SUBQ ACHS [facility]; Protocol Stop: 11/12/18 20:59 Last Admin: 09/20/18 06:34 Dose: Not Given Lactobacillus Rhamnosus (Culturelle 15b) 1 each PO DAILY [facility] Stop: 11/13/18 10:59 Last Admin: 09/20/18 09:27 Dose: 1 each Levothyroxine Sodium (Synthroid) 0.05 mg PO DAILY@0730 [facility] Stop: 11/13/18 07:29 Last Admin: 09/20/18 06:34 Dose: 0.05 mg Loperamide HCl (Imodium) 2 mg PO DAILY [facility] Stop: 11/13/18 08:59 Last Admin: 09/20/18 09:27 Dose: 2 mg Lorazepam (Ativan) 0.5 mg PO Q4HR PRN; Protocol PRN Reason: Agitation Stop: 11/12/18 16:46 Last Admin: 09/17/18 11:55 Dose: 0.5 mg Losartan Potassium (Cozaar) 50 mg PO DAILY [facility] Stop: 11/13/18 08:59 Last Admin: 09/20/18 09:28 Dose: 50 mg Magnesium Hydroxide (Milk Of Magnesia) 30 ml PO HS PRN PRN Reason: Constipation Memantine (Namenda) 10 mg PO DAILY [facility] Stop: 11/13/18 08:59 Last Admin: 09/20/18 09:29 Dose: 10 mg Metformin HCl (Glucophage) 500 mg PO BID [facility] Stop: 11/12/18 16:59 Last Admin: 09/20/18 09:26 Dose: 500 mg Multivitamins/Vitamin C (Theragran) 1 tab PO DAILY [facility] Stop: 11/13/18 08:59 Last Admin: 09/20/18 09:26 Dose: 1 tab Oxybutynin Chloride (Ditropan) 5 mg PO HS [facility] Stop: 11/12/18 20:59 Last Admin: 09/19/18 20:56 Dose: 5 mg Trimethoprim/Sulfamethoxazole (Bactrim Ds) 1 tab PO BID [facility] Stop: 11/13/18 16:59 Last Admin: 09/20/18 09:26 Dose: 1 tab Vitamin D (Vitamin D) 1,000 iu PO DAILY [facility] Stop: 11/13/18 08:59 Last Admin: 09/20/18 09:25 Dose: 1,000 iu Zolpidem Tartrate (Ambien) 5 mg PO HS PRN PRN Reason: Insomnia Stop: 11/12/18 16:53 Last Admin: 09/13/18 21:55 Dose: 5 mg Physical Exam: 73 y/o male patient is very irritable and is currently fitted with mittens on both hands he was hitting himself and was tr emily to hit staff. General: other ( Confused.) HEENT: NC/AT, PERRLA Neck: Supple Lungs: CTAB Cardiovascular: RRR, Normal S1, Normal S2, without murmur Abdomen: soft, non-tender, non-distended, positive bowel sound Extremities: clear Neurological: no change Internal Medicine Assmt/Plan - Assessment Assessment: Severe Dementia. Agitation. Aggressive behavior. - Plan Plan: Continuation of care Continue present meds as directed Monitor labs, diet Psych followup Fall precaution Continue present care management Nutritional Asmnt/Malnutr-PDOC - Dietary Evaluation Malnutrition Findings (Please click <Entered> for more info): Nutritional Asmnt/Malnutrition Start: 09/16/18 14: 27 Text: Status: Complete Freq: Protocol: Document 09/16/18 14:28 LCHENG (Rec: 09/16/18 15:12 LCLISAG [email or web address]) Nutritional Asmnt/Malnutrition Patient General Information Nutritional Screening Moderate Risk Diagnosis psychosis NOS Pertinent Medical Hx/Surgical Hx HTN, DM, dyslipidemia Subjective Information Pt seen lying in bed, confused , non-verbal. Per EMR, PO intake 75-100%. Current Diet Order/ Nutrition Support CCHO, cardiac, no lactose Pertinent Medications lipitor, vit B12, lantus, insulin, humalog, culturelle, synthroid, glucophage, theragran Pertinent Labs 09/14 K 3.4, Glucose 133, POC 190 09/13 Cl 108, Cr 0.6, glucose 147, alb 3.3 Nutritional Hx/Data Height 1.7 m Height (Calculated Centimeters) 170.2 Current Weight (lbs) 74.389 kg Weight (Calculated Kilograms) 74.4 Weight (Calculated Grams) 41134.1 [place] Body Weight 148 Body Mass Index (BMI) 25.7 GI Symptoms GI Symptoms None Last BM 09/15 Difficult in: None Food Allergies Yes: lactose Skin Integrity/Comment: dryness Current %PO Good (75-100%) Estimated Nutritional Goals BEE in Kcals: Using Current wt Calories/Kcals/Kg 23-27 Kcals Calculated 7517-2213 Protein: Using Current wt Protein g/k.8 Protein Calculated 60 Fluid: ml 1725-2025ml (1ml/kcal) Nutritional Problem No current Nutrition Prob Problem N/A Malnutrition Alert Is there a minimum of two criteria No selected? Query Text:Check all the applicable criteria. A minimum of two criteria are recommended for diagnosis of either severe or non-severe malnutrition. Malnutrition Related to Morbid Obesity Malnutrition related to morbid obesity No Intervention/Recommendation Comments 1. Continue with CCHO, cardiac , no lactose diet as ordered. 2. Monitor PO intake, wt, labs and skin integrity 3. F/U as low risk in 7 days Expected Outcomes/Goals Expected Outcomes/Goals 1. PO intake to meet at least 75% of nutritional needs. 2. Wt stability, skin to remain intact, labs to approach WNL.
--- NOTE | 2018-09-20 23:21 | Progress Notes ---
DATE: 09/20/2018 SUBJECTIVE: The patient was resting in bed. The patient appeared to be calm and not rocking himself or banging himself on the mattress and being restless like yesterday. The patient indicated that he is hungry. He has a tray on the bedside table. The patient reported that he slept okay. The patient was not able to respond verbally to any question. The patient only gestured. OBJECTIVE: The patient appeared to be calmer and not as restless, not rocking his body and slamming his body on the mattress as much like yesterday. Staff reported the patient was doing okay. The patient has been eating reasonably well when feed. The patient slept okay. The patient seems to be less restless. The patient continued to require mitten to keep the patient from putting his hands inside his pants. ASSESSMENT: The patient seems to be somewhat better with the change of medications from Ativan to Klonopin. PLAN: We will continue current medications and monitor patient's behavior. JOB# [id number] JIM
[2018-09-21] MEDS: Levothyroxine 0.05 Mg Tab PO SCH (06:49)
[2018-09-21] MEDS: INSULIN LISPRO SLIDING SCALE 100 UNITS/ML UNIT SUBQ SCH ×3 (06:56→21:45)
[2018-09-21] MEDS: Insulin Glargine 100 units/ml 10ml Vial SUBQ SCH (08:29)
[2018-09-21] MEDS: Sulfamethoxazole/TMP 800/160mg Tab PO SCH ×2 (10:08→16:31)
[2018-09-21] MEDS: Multivitamin Tab PO SCH (10:08)
[2018-09-21] MEDS: Lactobacillus Rhamnosus GG 15 Billion CFU CAP.SPRINK PO SCH (10:10)
--- NOTE | 2018-09-21 20:36 | Internal Medicine Prog Note ---
Internal Medicine Subjective - Subjective Service Date: 09/21/18 Patient seen and examined:: with staff, chart reviewed Patient is:: awake, confused (easily irritable but better, denies pain ), stares blankly, other (withdrawn.) Patient Complaints of:: other (Irritable mood, confused, selectively mute, slow and delayed.) Per staff patient has:: no adverse event, no episodes of fall, tolerating meds Internal Medicine Objective - Results Result Diagrams: 09/14/18 08:15 09/14/18 08:15 Recent Labs: Laboratory Last Values WBC 7.5 Th/cmm (4.8-10.8) 09/14/18 08:15 RBC 3.98 Mil/cmm (3.80-5.80) 09/14/18 08:15 Hgb 12.8 gm/dL (12-16) 09/14/18 08:15 Hct 38.0 % (41.0-60) L 09/14/18 08:15 MCV 95.4 fl (80-99) 09/14/18 08:15 MCH 32.1 pg (27.0-31.0) H 09/14/18 08:15 MCHC Differential 33.6 pg (28.0-36.0) 09/14/18 08:15 RDW 12.9 % (11.5-20.0) 09/14/18 08:15 Plt Count 147 Th/cmm (150-400) L 09/14/18 08:15 MPV 8.3 fl 09/14/18 08:15 Neutrophils % 69.2 % (40.0-80.0) 09/14/18 08:15 Lymphocytes % 19.3 % (20.0-50.0) L 09/14/18 08:15 Monocytes % 8.5 % (2.0-10.0) 09/14/18 08:15 Eosinophils % 2.8 % (0.0-5.0) 09/14/18 08:15 Basophils % 0.2 % (0.0-2.0) 09/14/18 08:15 ESR 54 mm/hr (0-20) H 09/14/18 08:15 Sodium 139 mEq/L (136-145) 09/14/18 08:15 Potassium 3.4 mEq/L (3.5-5.1) L 09/14/18 08:15 Chloride 106 mEq/L (98-107) 09/14/18 08:15 Carbon Dioxide 22.5 mEq/L (21.0-31.0) 09/14/18 08:15 Anion Gap 13.9 (7.0-16.0) 09/14/18 08:15 BUN 22 mg/dL (7-25) 09/14/18 08:15 Creatinine 0.7 mg/dL (0.7-1.3) 09/14/18 08:15 Est GFR ( Amer) TNP 09/14/18 08:15 Est GFR (Non-Af Amer) TNP 09/14/18 08:15 BUN/Creatinine Ratio 31.4 09/14/18 08:15 Glucose 133 mg/dL (70-105) H 09/14/18 08:15 POC Glucose 132 MG/DL (70 - 105) H 09/21/18 17:07 Uric Acid 4.1 mg/dL (4.4-7.6) L 09/14/18 08:15 Calcium 8.8 mg/dL (8.6-10.3) 09/14/18 08:15 Total Bilirubin 0.9 mg/dL (0.3-1.0) 09/13/18 12:04 AST 12 U/L (13-39) L 09/13/18 12:04 ALT 12 U/L (7-52) 09/13/18 12:04 Alkaline Phosphatase 47 U/L (34-104) 09/13/18 12:04 Total Protein 5.9 gm/dL (6.0-8.3) L 09/13/18 12:04 Albumin 3.3 gm/dL (4.2-5.5) L 09/13/18 12:04 Globulin 2.6 gm/dL 09/13/18 12:04 Albumin/Globulin Ratio 1.3 (1.0-1.8) 09/13/18 12:04 Triglycerides 78 mg/dL (<150) 09/13/18 12:04 Cholesterol 80 mg/dL (<200) 09/13/18 12:04 LDL Cholesterol Direct 40 mg/dL (75-193) L 09/13/18 12:04 HDL Cholesterol 29 mg/dL (23-92) 09/13/18 12:04 TSH 2.09 uIU/ml (0.34-5.60) 09/13/18 12:04 - Physical Exam Vitals and I&O: Vital Signs Temp 98.4 F 09/21/18 20:24 Pulse 64 09/21/18 20:24 Resp 18 09/21/18 20:24 BP 129/74 09/21/18 20:24 Pulse Ox 98 09/21/18 20:24 Intake & Output 09/21/18 09/21/18 09/22/18 06:59 18:59 06:59 Intake Total 950 60 Balance 950 60 Intake: Oral 950 60 Other: # Voids 3 4 2 # Bowel Movements 2 0 Active Medications: Current Medications Acetaminophen (Tylenol) 650 mg PO Q4HR PRN PRN Reason: Mild Pain / Temp above 100 Stop: 11/12/18 16:53 Al Hydrox/Mg Hydrox/Simethicone (Maalox) 30 ml PO Q4HR PRN PRN Reason: GI DISTRESS Stop: 11/12/18 16:53 Aspirin (Ecotrin) 81 mg PO HS [facility] Stop: 11/12/18 20:59 Last Admin: 09/20/18 21:03 Dose: 81 mg Atorvastatin Calcium (Lipitor) 40 mg PO HS [facility] Stop: 11/13/18 20:59 Last Admin: 09/20/18 21:02 Dose: 40 mg Cyanocobalamin (Vitamin B12) 1,000 mcg PO DAILY [facility] Stop: 11/13/18 08:59 Last Admin: 09/21/18 10:07 Dose: 1,000 mcg Dextrose (D50w) 50 ml IVP PRN PRN PRN Reason: Blood Glucose less than 70 Stop: 11/12/18 20:22 Dextrose (Glutose 40%) 18.75 gm PO PRN PRN PRN Reason: Blood Glucose less than 70 Stop: 11/12/18 20:22 Divalproex Sodium (Depakote Dr) 375 mg PO BID [facility]; Protocol Stop: 11/17/18 08:59 Last Admin: 09/21/18 16:31 Dose: 375 mg Donepezil HCl (Aricept) 10 mg PO HS [facility] Stop: 11/12/18 20:59 Last Admin: 09/20/18 21:03 Dose: 10 mg Finasteride (Proscar) 5 mg PO DAILY [facility]; Protocol Stop: 11/13/18 08:59 Last Admin: 09/21/18 10:07 Dose: 5 mg Glucagon (Glucagen) 1 mg IM PRN PRN PRN Reason: Blood Glucose less than 70 Stop: 11/12/18 20:22 Insulin Glargine (Lantus Insulin) 5 units SUBQ QDPC [facility] Stop: 11/13/18 08:29 Last Admin: 09/21/18 08:29 Dose: Not Given Insulin Human Lispro (Humalog Insulin Sliding Scale) 0 units SUBQ ACHS [facility]; Protocol Stop: 11/12/18 20:59 Last Admin: 09/21/18 11:29 Dose: Not Given Lactobacillus Rhamnosus (Culturelle 15b) 1 each PO DAILY [facility] Stop: 11/13/18 10:59 Last Admin: 09/21/18 10:10 Dose: 1 each Levothyroxine Sodium (Synthroid) 0.05 mg PO DAILY@0730 [facility] Stop: 11/13/18 07:29 Last Admin: 09/21/18 06:49 Dose: 0.05 mg Loperamide HCl (Imodium) 2 mg PO DAILY [facility] Stop: 11/13/18 08:59 Last Admin: 09/21/18 10:10 Dose: 2 mg Lorazepam (Ativan) 0.5 mg PO Q4HR PRN; Protocol PRN Reason: Agitation Stop: 11/12/18 16:46 Last Admin: 09/20/18 21:04 Dose: 0.5 mg Losartan Potassium (Cozaar) 50 mg PO DAILY [facility] Stop: 11/13/18 08:59 Last Admin: 09/21/18 10:10 Dose: Not Given Magnesium Hydroxide (Milk Of Magnesia) 30 ml PO HS PRN PRN Reason: Constipation Memantine (Namenda) 10 mg PO DAILY [facility] Stop: 11/13/18 08:59 Last Admin: 09/21/18 10:08 Dose: 10 mg Metformin HCl (Glucophage) 500 mg PO BID [facility] Stop: 11/12/18 16:59 Last Admin: 09/21/18 16:31 Dose: 500 mg Multivitamins/Vitamin C (Theragran) 1 tab PO DAILY [facility] Stop: 11/13/18 08:59 Last Admin: 09/21/18 10:08 Dose: 1 tab Oxybutynin Chloride (Ditropan) 5 mg PO HS [facility] Stop: 11/12/18 20:59 Last Admin: 09/20/18 21:03 Dose: 5 mg Trimethoprim/Sulfamethoxazole (Bactrim Ds) 1 tab PO BID [facility] Stop: 11/13/18 16:59 Last Admin: 09/21/18 16:31 Dose: 1 tab Vitamin D (Vitamin D) 1,000 iu PO DAILY [facility] Stop: 11/13/18 08:59 Last Admin: 09/21/18 10:07 Dose: 1,000 iu Zolpidem Tartrate (Ambien) 5 mg PO HS PRN PRN Reason: Insomnia Stop: 11/12/18 16:53 Last Admin: 09/20/18 21:04 Dose: 5 mg Physical Exam: 73 y/o male patient is very irritable and is currently fitted with mittens on both hands he was hitting himself and was trying to hit staff. Continues to be dangerous to himself and others. General: weak, other ( Confused.) HEENT: NC/AT, PERRLA Neck: Supple Lungs: CTAB Cardiovascular: RRR, Normal S1, Normal S2, without murmur Abdomen: soft, non-tender, non-distended, positive bowel sound Extremities: clear Neurological: no change Internal Medicine Assmt/Plan - Assessment Assessment: Severe Dementia. Agitation. Aggressive behavior. - Plan Plan: Continuation of care Continue present meds as directed Monitor labs, diet Psych followup Fall precaution Continue present care management Nutritional Asmnt/Malnutr-PDOC - Dietary Evaluation Malnutrition Findings (Please click <Entered> for more info): Nutritional Asmnt/Malnutrition Start: 09/16/18 14: 27 Text: Status: Complete Freq: Protocol: Document 09/16/18 14:28 LCHENG (Rec: 09/16/18 15:12 LCHENG [email or web address]) Nutritional Asmnt/Malnutrition Patient General Information Nutritional Screening Moderate Risk Diagnosis psychosis NOS Pertinent Medical Hx/Surgical Hx HTN, DM, dyslipidemia Subjective Information Pt seen lying in bed, confused , non-verbal. Per EMR, PO intake 75-100%. Current Diet Order/ Nutrition Support CCHO, cardiac, no lactose Pertinent Medications lipitor, vit B12, lantus, insulin, humalog, culturelle, synthroid, glucophage, theragran Pertinent Labs 09/14 K 3.4, Glucose 133, POC 190 09/13 Cl 108, Cr 0.6, glucose 147, alb 3.3 Nutritional Hx/Data Height 1.7 m Height (Calculated Centimeters) 170.2 Current Weight (lbs) 74.389 kg Weight (Calculated Kilograms) 74.4 Weight (Calculated Grams) 00350.1 [place] Body Weight 148 Body Mass Index (BMI) 25.7 GI Symptoms GI Symptoms None Last BM 09/15 Difficult in: None Food Allergies Yes: lactose Skin Integrity/Comment: dryness Current %PO Good (75-100%) Estimated Nutritional Goals BEE in Kcals: Using Current wt Calories/Kcals/Kg 23-27 Kcals Calculated 3277-6460 Protein: Using Current wt Protein g/k.8 Protein Calculated 60 Fluid: ml 1725-2024ml (1ml/kcal) Nutritional Problem No current Nutrition Prob Problem N/A Malnutrition Alert Is there a minimum of two criteria No selected? Query Text:Check all the applicable criteria. A minimum of two criteria are recommended for diagnosis of either severe or non-severe malnutrition. Malnutrition Related to Morbid Obesity Malnutrition related to morbid obesity No Intervention/Recommendation Comments 1. Continue with CCHO, cardiac , no lactose diet as ordered. 2. Monitor PO intake, wt, labs and skin integrity 3. F/U as low risk in 7 days Expected Outcomes/Goals Expected Outcomes/Goals 1. PO intake to meet at least 75% of nutritional needs. 2. Wt stability, skin to remain intact, labs to approach WNL.
--- NOTE | 2018-09-22 03:10 | Progress Notes ---
DATE: 09/21/2018 PSYCHIATRIC PROGRESS NOTE SUBJECTIVE: Staff was spoken to. The patient is interviewed. Mood is noted to be less irritable. The patient is resting on the bed. The patient is reported to have been able to be redirectable today. The patient has been compliant with the medications. No aggressive behavior is reported today, but the patient has a history of trying to hit himself and hence the patient has to be kept closely monitored and the patient has been put ____ to avoid self-abusive behavior. The patient is going to be continued with the current medications that is the Depakote and the patient is going to be given the anti-anxiety medication as needed and followed up with the supportive therapy. JOB# [id number]
[2018-09-22] MEDS: Levothyroxine 0.05 Mg Tab PO SCH (06:40)
[2018-09-22] MEDS: INSULIN LISPRO SLIDING SCALE 100 UNITS/ML UNIT SUBQ SCH ×3 (07:00→16:11)
[2018-09-22] MEDS: Multivitamin Tab PO SCH (08:38)
[2018-09-22] MEDS: Lactobacillus Rhamnosus GG 15 Billion CFU CAP.SPRINK PO SCH (08:38)
[2018-09-22] MEDS: Insulin Glargine 100 units/ml 10ml Vial SUBQ SCH (08:40)
--- NOTE | 2018-09-22 14:06 | Internal Medicine Prog Note ---
Internal Medicine Subjective - Subjective Service Date: 09/22/18 Patient is:: awake, confused (easily irritable but better, denies pain ), stares blankly, other (withdrawn.) Patient Complaints of:: other (Irritable mood, confused, selectively mute, slow and delayed.) Per staff patient has:: no adverse event, no episodes of fall, tolerating meds Internal Medicine Objective - Results Result Diagrams: 09/14/18 08:15 09/14/18 08:15 Recent Labs: Laboratory Last Values WBC 7.5 Th/cmm (4.8-10.8) 09/14/18 08:15 RBC 3.98 Mil/cmm (3.80-5.80) 09/14/18 08:15 Hgb 12.8 gm/dL (12-16) 09/14/18 08:15 Hct 38.0 % (41.0-60) L 09/14/18 08:15 MCV 95.4 fl (80-99) 09/14/18 08:15 MCH 32.1 pg (27.0-31.0) H 09/14/18 08:15 MCHC Differential 33.6 pg (28.0-36.0) 09/14/18 08:15 RDW 12.9 % (11.5-20.0) 09/14/18 08:15 Plt Count 147 Th/cmm (150-400) L 09/14/18 08:15 MPV 8.3 fl 09/14/18 08:15 Neutrophils % 69.2 % (40.0-80.0) 09/14/18 08:15 Lymphocytes % 19.3 % (20.0-50.0) L 09/14/18 08:15 Monocytes % 8.5 % (2.0-10.0) 09/14/18 08:15 Eosinophils % 2.8 % (0.0-5.0) 09/14/18 08:15 Basophils % 0.2 % (0.0-2.0) 09/14/18 08:15 ESR 54 mm/hr (0-20) H 09/14/18 08:15 Sodium 139 mEq/L (136-145) 09/14/18 08:15 Potassium 3.4 mEq/L (3.5-5.1) L 09/14/18 08:15 Chloride 106 mEq/L (98-107) 09/14/18 08:15 Carbon Dioxide 22.5 mEq/L (21.0-31.0) 09/14/18 08:15 Anion Gap 13.9 (7.0-16.0) 09/14/18 08:15 BUN 22 mg/dL (7-25) 09/14/18 08:15 Creatinine 0.7 mg/dL (0.7-1.3) 09/14/18 08:15 Est GFR ( Amer) TNP 09/14/18 08:15 Est GFR (Non-Af Amer) TNP 09/14/18 08:15 BUN/Creatinine Ratio 31.4 09/14/18 08:15 Glucose 133 mg/dL (70-105) H 09/14/18 08:15 POC Glucose 127 MG/DL (70 - 105) H 09/22/18 06:28 Uric Acid 4.1 mg/dL (4.4-7.6) L 09/14/18 08:15 Calcium 8.8 mg/dL (8.6-10.3) 09/14/18 08:15 Total Bilirubin 0.9 mg/dL (0.3-1.0) 09/13/18 12:04 AST 12 U/L (13-39) L 09/13/18 12:04 ALT 12 U/L (7-52) 09/13/18 12:04 Alkaline Phosphatase 47 U/L (34-104) 09/13/18 12:04 Total Protein 5.9 gm/dL (6.0-8.3) L 09/13/18 12:04 Albumin 3.3 gm/dL (4.2-5.5) L 09/13/18 12:04 Globulin 2.6 gm/dL 09/13/18 12:04 Albumin/Globulin Ratio 1.3 (1.0-1.8) 09/13/18 12:04 Triglycerides 78 mg/dL (<150) 09/13/18 12:04 Cholesterol 80 mg/dL (<200) 09/13/18 12:04 LDL Cholesterol Direct 40 mg/dL (75-193) L 09/13/18 12:04 HDL Cholesterol 29 mg/dL (23-92) 09/13/18 12:04 TSH 2.09 uIU/ml (0.34-5.60) 09/13/18 12:04 - Physical Exam Vitals and I&O: Vital Signs Temp 97.7 F 09/22/18 06:33 Pulse 68 09/22/18 08:39 Resp 18 09/22/18 08:00 BP 141/79 09/22/18 08:39 Pulse Ox 96 09/22/18 06:33 Intake & Output 09/21/18 09/22/18 09/22/18 18:59 06:59 18:59 Intake Total 950 60 Balance 950 60 Weight (lbs) 164 lb Intake: Oral 950 60 Other: # Voids 4 3 # Bowel Movements 2 0 Weight Source Bedscale Active Medications: Current Medications Acetaminophen (Tylenol) 650 mg PO Q4HR PRN PRN Reason: Mild Pain / Temp above 100 Stop: 11/12/18 16:53 Al Hydrox/Mg Hydrox/Simethicone (Maalox) 30 ml PO Q4HR PRN PRN Reason: GI DISTRESS Stop: 11/12/18 16:53 Aspirin (Ecotrin) 81 mg PO HS [facility] Stop: 11/12/18 20:59 Last Admin: 09/21/18 22:19 Dose: 81 mg Atorvastatin Calcium (Lipitor) 40 mg PO HS [facility] Stop: 11/13/18 20:59 Last Admin: 09/21/18 22:18 Dose: 40 mg Cholecalciferol (Vitamin D3) 1,000 iu PO DAILY [facility] Stop: 11/13/18 08:59 Cyanocobalamin (Vitamin B12) 1,000 mcg PO DAILY [facility] Stop: 11/13/18 08:59 Last Admin: 09/22/18 08:37 Dose: 1,000 mcg Dextrose (D50w) 50 ml IVP PRN PRN PRN Reason: Blood Glucose less than 70 Stop: 11/12/18 20:22 Dextrose (Glutose 40%) 18.75 gm PO PRN PRN PRN Reason: Blood Glucose less than 70 Stop: 11/12/18 20:22 Divalproex Sodium (Depakote Dr) 375 mg PO BID [facility]; Protocol Stop: 11/17/18 08:59 Last Admin: 09/22/18 08:39 Dose: 375 mg Donepezil HCl (Aricept) 10 mg PO HS [facility] Stop: 11/12/18 20:59 Last Admin: 09/21/18 22:19 Dose: 10 mg Finasteride (Proscar) 5 mg PO DAILY [facility]; Protocol Stop: 11/13/18 08:59 Last Admin: 09/22/18 08:37 Dose: 5 mg Glucagon (Glucagen) 1 mg IM PRN PRN PRN Reason: Blood Glucose less than 70 Stop: 11/12/18 20:22 Insulin Glargine (Lantus Insulin) 5 units SUBQ QDPC [facility] Stop: 11/13/18 08:29 Last Admin: 09/22/18 08:40 Dose: Not Given Insulin Human Lispro (Humalog Insulin Sliding Scale) 0 units SUBQ ACHS [facility]; Protocol Stop: 11/12/18 20:59 Last Admin: 09/22/18 11:27 Dose: Not Given Lactobacillus Rhamnosus (Culturelle 15b) 1 each PO DAILY [facility] Stop: 11/13/18 10:59 Last Admin: 09/22/18 08:38 Dose: 1 each Levothyroxine Sodium (Synthroid) 0.05 mg PO DAILY@0730 [facility] Stop: 11/13/18 07:29 Last Admin: 09/22/18 06:40 Dose: 0.05 mg Loperamide HCl (Imodium) 2 mg PO DAILY [facility] Stop: 11/13/18 08:59 Last Admin: 09/22/18 08:38 Dose: 2 mg Lorazepam (Ativan) 0.5 mg PO Q4HR PRN; Protocol PRN Reason: Agitation Stop: 11/12/18 16:46 Last Admin: 09/20/18 21:04 Dose: 0.5 mg Losartan Potassium (Cozaar) 50 mg PO DAILY [facility] Stop: 11/13/18 08:59 Last Admin: 09/22/18 08:39 Dose: 50 mg Magnesium Hydroxide (Milk Of Magnesia) 30 ml PO HS PRN PRN Reason: Constipation Memantine (Namenda) 10 mg PO DAILY [facility] Stop: 11/13/18 08:59 Last Admin: 09/22/18 08:39 Dose: 10 mg Metformin HCl (Glucophage) 500 mg PO BID [facility] Stop: 11/12/18 16:59 Last Admin: 09/22/18 08:38 Dose: 500 mg Multivitamins/Vitamin C (Theragran) 1 tab PO DAILY [facility] Stop: 11/13/18 08:59 Last Admin: 09/22/18 08:38 Dose: 1 tab Oxybutynin Chloride (Ditropan) 5 mg PO HS [facility] Stop: 11/12/18 20:59 Last Admin: 09/21/18 22:19 Dose: 5 mg Zolpidem Tartrate (Ambien) 5 mg PO HS PRN PRN Reason: Insomnia Stop: 11/12/18 16:53 Last Admin: 09/21/18 22:19 Dose: 5 mg General: weak, other ( Confused.) HEENT: NC/AT, PERRLA Neck: Supple Lungs: CTAB Cardiovascular: RRR, Normal S1, Normal S2, without murmur Abdomen: soft, non-tender, non-distended, positive bowel sound Extremities: clear Neurological: no change Internal Medicine Assmt/Plan - Assessment Assessment: Severe Dementia. Agitation. cellulitis - Plan Plan: continue current plan of care Nutritional Asmnt/Malnutr-PDOC - Dietary Evaluation Malnutrition Findings (Please click <Entered> for more info): Nutritional Asmnt/Malnutrition Start: 09/16/18 14: 27 Text: Status: Complete Freq: Protocol: Document 09/16/18 14:28 LCHENG (Rec: 09/16/18 15:12 LCHENG [email or web address]) Nutritional Asmnt/Malnutrition Patient General Information Nutritional Screening Moderate Risk Diagnosis psychosis NOS Pertinent Medical Hx/Surgical Hx HTN, DM, dyslipidemia Subjective Information Pt seen lying in bed, confused , non-verbal. Per EMR, PO intake 75-100%. Current Diet Order/ Nutrition Support CCHO, cardiac, no lactose Pertinent Medications lipitor, vit B12, lantus, insulin, humalog, culturelle, synthroid, glucophage, theragran Pertinent Labs 09/14 K 3.4, Glucose 133, POC 190 09/13 Cl 108, Cr 0.6, glucose 147, alb 3.3 Nutritional Hx/Data Height 5 ft 7 in Height (Calculated Centimeters) 170.2 Current Weight (lbs) 164 lb Weight (Calculated Kilograms) 74.4 Weight (Calculated Grams) 84312.1 [place] Body Weight 148 Body Mass Index (BMI) 25.7 GI Symptoms GI Symptoms None Last BM 09/15 Difficult in: None Food Allergies Yes: lactose Skin Integrity/Comment: dryness Current %PO Good (75-100%) Estimated Nutritional Goals BEE in Kcals: Using Current wt Calories/Kcals/Kg 23-27 Kcals Calculated 6761-4734 Protein: Using Current wt Protein g/k.8 Protein Calculated 60 Fluid: ml 1724-2024ml (1ml/kcal) Nutritional Problem No current Nutrition Prob Problem N/A Malnutrition Alert Is there a minimum of two criteria No selected? Query Text:Check all the applicable criteria. A minimum of two criteria are recommended for diagnosis of either severe or non-severe malnutrition. Malnutrition Related to Morbid Obesity Malnutrition related to morbid obesity No Intervention/Recommendation Comments 1. Continue with CCHO, cardiac , no lactose diet as ordered. 2. Monitor PO intake, wt, labs and skin integrity 3. F/U as low risk in 7 days Expected Outcomes/Goals Expected Outcomes/Goals 1. PO intake to meet at least 75% of nutritional needs. 2. Wt stability, skin to remain intact, labs to approach WNL.
--- NOTE | 2018-09-22 18:39 | Progress Notes ---
DATE: 09/21/2018 PSYCHOLOGY PROGRESS NOTE SUBJECTIVE: The patient is seen and is interviewed. Case is discussed with staff. The patient presents as less agitated and less irritable on this visit. The patient is resting comfortably and responded to verbal stimuli. Staff reports that the patient has been compliant with medications and no aggressive behavior. The staff also reports the patient's self-abusive behavior has diminished. OBJECTIVE: Mood is less irritable. Affect is blunted. Thought process shows to be confused. The patient denied any hallucinations or delusions. The patient's self-abusive behavior is being closely monitored, but seems to be lessening. ASSESSMENT AND PLAN: The patient will continue to be monitored for the self-abusive behavior. We provided limit setting and de-escalation. We provided cognitive behavioral therapy with the patient to be able to respond to behavioral redirection and decrease his self-abusive behavior. We provided a simple anxiety reduction skill. We provided stress management to assist the patient in increasing his frustration tolerance. We provided coping strategies for phase of life issues. We encouraged the patient to demonstrate emotional and self-regulation and to be able to verbally respond to the staff versus acting out in a self-harm manner. We will follow up in 2 days to continue the present treatment if the patient remains on the unit. [facility]# [id number] JIM
[2018-09-23] MEDS: INSULIN LISPRO SLIDING SCALE 100 UNITS/ML UNIT SUBQ SCH ×5 (03:27→21:37)
[2018-09-23] MEDS: Levothyroxine 0.05 Mg Tab PO SCH (07:09)
[2018-09-23] MEDS: Insulin Glargine 100 units/ml 10ml Vial SUBQ SCH (08:51)
[2018-09-23] MEDS: Lactobacillus Rhamnosus GG 15 Billion CFU CAP.SPRINK PO SCH (08:52)
[2018-09-23] MEDS: Multivitamin Tab PO SCH (08:53)
--- NOTE | 2018-09-23 10:12 | Progress Notes ---
DATE: 09/22/2018 SUBJECTIVE: Staff was spoken to. The patient is interviewed. Mood is noted to be irritable. Affect is constricted. Insight and judgment at this time are noted to be still impaired. Impulse control is noted to be limited. The patient is self-abusive. The patient's has been contacting us, stating that the patient is rubbing his nose. She is worried that the patient is having some allergies. She wants some allergy medications. The patient is currently on the lorazepam on a p.r.n. basis and the patient is being closely monitored with ____ acid, which he has been getting at 375 mg twice a day for his impulsive behavior. PLAN: To continue the patient with these current medications and encouraged the patient to verbalize the concerns rather than to act out. [facility]# [id number]
--- NOTE | 2018-09-23 14:54 | Progress Notes ---
DATE: 09/23/2018 SUBJECTIVE: Staff was spoken to. The patient is interviewed. Mood is noted to be less irritable. The patient, however, continues to be self-abusive. The patient's insight and judgement are noted to be still impaired. Impulse control is noted to be poor. The patient needs to be redirected constantly. The patient's is concerned that the patient has been having any allergies and ____ across with any allergies for the patient because the only thing is that the patient has been rubbing his nose. ASSESSMENT: The patient is still impulsive. PLAN: To continue the patient with the supportive therapy. Continue the patient with the Depakote and followup. [facility]# [id number]
--- NOTE | 2018-09-23 15:48 | Internal Medicine Prog Note ---
Internal Medicine Subjective - Subjective Patient seen and examined:: chart reviewed (pt. still impulsive and less irritable ) Patient is:: awake, confused (easily irritable but better, denies pain ), stares blankly, other (withdrawn.) Patient Complaints of:: other (Irritable mood, confused, selectively mute, slow and delayed.) Per staff patient has:: no adverse event, no episodes of fall, tolerating meds Internal Medicine Objective - Results Result Diagrams: 09/14/18 08:15 09/14/18 08:15 Recent Labs: Laboratory Last Values WBC 7.5 Th/cmm (4.8-10.8) 09/14/18 08:15 RBC 3.98 Mil/cmm (3.80-5.80) 09/14/18 08:15 Hgb 12.8 gm/dL (12-16) 09/14/18 08:15 Hct 38.0 % (41.0-60) L 09/14/18 08:15 MCV 95.4 fl (80-99) 09/14/18 08:15 MCH 32.1 pg (27.0-31.0) H 09/14/18 08:15 MCHC Differential 33.6 pg (28.0-36.0) 09/14/18 08:15 RDW 12.9 % (11.5-20.0) 09/14/18 08:15 Plt Count 147 Th/cmm (150-400) L 09/14/18 08:15 MPV 8.3 fl 09/14/18 08:15 Neutrophils % 69.2 % (40.0-80.0) 09/14/18 08:15 Lymphocytes % 19.3 % (20.0-50.0) L 09/14/18 08:15 Monocytes % 8.5 % (2.0-10.0) 09/14/18 08:15 Eosinophils % 2.8 % (0.0-5.0) 09/14/18 08:15 Basophils % 0.2 % (0.0-2.0) 09/14/18 08:15 ESR 54 mm/hr (0-20) H 09/14/18 08:15 Sodium 139 mEq/L (136-145) 09/14/18 08:15 Potassium 3.4 mEq/L (3.5-5.1) L 09/14/18 08:15 Chloride 106 mEq/L (98-107) 09/14/18 08:15 Carbon Dioxide 22.5 mEq/L (21.0-31.0) 09/14/18 08:15 Anion Gap 13.9 (7.0-16.0) 09/14/18 08:15 BUN 22 mg/dL (7-25) 09/14/18 08:15 Creatinine 0.7 mg/dL (0.7-1.3) 09/14/18 08:15 Est GFR ( Amer) TNP 09/14/18 08:15 Est GFR (Non-Af Amer) TNP 09/14/18 08:15 BUN/Creatinine Ratio 31.4 09/14/18 08:15 Glucose 133 mg/dL (70-105) H 09/14/18 08:15 POC Glucose 144 MG/DL (70 - 105) H 09/23/18 06:23 Uric Acid 4.1 mg/dL (4.4-7.6) L 09/14/18 08:15 Calcium 8.8 mg/dL (8.6-10.3) 09/14/18 08:15 Total Bilirubin 0.9 mg/dL (0.3-1.0) 09/13/18 12:04 AST 12 U/L (13-39) L 09/13/18 12:04 ALT 12 U/L (7-52) 09/13/18 12:04 Alkaline Phosphatase 47 U/L (34-104) 09/13/18 12:04 Total Protein 5.9 gm/dL (6.0-8.3) L 09/13/18 12:04 Albumin 3.3 gm/dL (4.2-5.5) L 09/13/18 12:04 Globulin 2.6 gm/dL 09/13/18 12:04 Albumin/Globulin Ratio 1.3 (1.0-1.8) 09/13/18 12:04 Triglycerides 78 mg/dL (<150) 09/13/18 12:04 Cholesterol 80 mg/dL (<200) 09/13/18 12:04 LDL Cholesterol Direct 40 mg/dL (75-193) L 09/13/18 12:04 HDL Cholesterol 29 mg/dL (23-92) 09/13/18 12:04 TSH 2.09 uIU/ml (0.34-5.60) 09/13/18 12:04 - Physical Exam Vitals and I&O: Vital Signs Temp 98.6 F 09/23/18 14:00 Pulse 61 09/23/18 14:00 Resp 20 09/23/18 14:00 BP 142/72 09/23/18 14:00 Pulse Ox 96 09/23/18 14:00 Intake & Output 09/22/18 09/23/18 09/23/18 18:59 06:59 18:59 Intake Total 120 Balance 120 Intake: Oral 120 Other: # Voids 2 # Bowel Movements 0 Stool Characteristics Soft Soft Active Medications: Current Medications Acetaminophen (Tylenol) 650 mg PO Q4HR PRN PRN Reason: Mild Pain / Temp above 100 Stop: 11/12/18 16:53 Al Hydrox/Mg Hydrox/Simethicone (Maalox) 30 ml PO Q4HR PRN PRN Reason: GI DISTRESS Stop: 11/12/18 16:53 Aspirin (Ecotrin) 81 mg PO [facility] Stop: 11/12/18 20:59 Last Admin: 09/23/18 03:28 Dose: 81 mg Atorvastatin Calcium (Lipitor) 40 mg PO HS [facility] Stop: 11/13/18 20:59 Last Admin: 09/23/18 03:28 Dose: 40 mg Cholecalciferol (Vitamin D3) 1,000 iu PO DAILY [facility] Stop: 11/13/18 08:59 Last Admin: 09/23/18 08:52 Dose: 1,000 iu Cyanocobalamin (Vitamin B12) 1,000 mcg PO DAILY [facility] Stop: 11/13/18 08:59 Last Admin: 09/23/18 08:52 Dose: 1,000 mcg Dextrose (D50w) 50 ml IVP PRN PRN PRN Reason: Blood Glucose less than 70 Stop: 11/12/18 20:22 Dextrose (Glutose 40%) 18.75 gm PO PRN PRN PRN Reason: Blood Glucose less than 70 Stop: 11/12/18 20:22 Divalproex Sodium (Depakote Dr) 375 mg PO BID [facility]; Protocol Stop: 11/17/18 08:59 Last Admin: 09/23/18 08:51 Dose: 375 mg Donepezil HCl (Aricept) 10 mg PO HS [facility] Stop: 11/12/18 20:59 Last Admin: 09/23/18 03:28 Dose: 10 mg Finasteride (Proscar) 5 mg PO DAILY [facility]; Protocol Stop: 11/13/18 08:59 Last Admin: 09/23/18 08:52 Dose: 5 mg Glucagon (Glucagen) 1 mg IM PRN PRN PRN Reason: Blood Glucose less than 70 Stop: 11/12/18 20:22 Insulin Glargine (Lantus Insulin) 5 units SUBQ QDPC [facility] Stop: 11/13/18 08:29 Last Admin: 09/23/18 08:51 Dose: Not Given Insulin Human Lispro (Humalog Insulin Sliding Scale) 0 units SUBQ ACHS [facility]; Protocol Stop: 11/12/18 20:59 Last Admin: 09/23/18 12:08 Dose: Not Given Lactobacillus Rhamnosus (Culturelle 15b) 1 each PO DAILY [facility] Stop: 11/13/18 10:59 Last Admin: 09/23/18 08:52 Dose: 1 each Levothyroxine Sodium (Synthroid) 0.05 mg PO DAILY@0730 [facility] Stop: 11/13/18 07:29 Last Admin: 09/23/18 07:09 Dose: 0.05 mg Loperamide HCl (Imodium) 2 mg PO DAILY [facility] Stop: 11/13/18 08:59 Last Admin: 09/23/18 08:52 Dose: 2 mg Lorazepam (Ativan) 0.5 mg PO Q4HR PRN; Protocol PRN Reason: Agitation Stop: 11/12/18 16:46 Last Admin: 09/20/18 21:04 Dose: 0.5 mg Losartan Potassium (Cozaar) 50 mg PO DAILY [facility] Stop: 11/13/18 08:59 Last Admin: 09/23/18 08:52 Dose: 50 mg Magnesium Hydroxide (Milk Of Magnesia) 30 ml PO HS PRN PRN Reason: Constipation Memantine (Namenda) 10 mg PO DAILY [facility] Stop: 11/13/18 08:59 Last Admin: 09/23/18 08:52 Dose: 10 mg Metformin HCl (Glucophage) 500 mg PO BID [facility] Stop: 11/12/18 16:59 Last Admin: 09/23/18 08:52 Dose: 500 mg Multivitamins/Vitamin C (Theragran) 1 tab PO DAILY [facility] Stop: 11/13/18 08:59 Last Admin: 09/23/18 08:53 Dose: 1 tab Oxybutynin Chloride (Ditropan) 5 mg PO HS [facility] Stop: 11/12/18 20:59 Last Admin: 09/23/18 03:29 Dose: 5 mg Zolpidem Tartrate (Ambien) 5 mg PO HS PRN PRN Reason: Insomnia Stop: 11/12/18 16:53 Last Admin: 09/21/18 22:19 Dose: 5 mg Physical Exam: 73 y/o male patient is very irritable and is currently fitted with mittens on both hands he was hitting himself and was trying to hit staff. Continues to be dangerous to himself and others. General: weak, other ( Confused.) HEENT: NC/AT, PERRLA Neck: Supple Lungs: CTAB Cardiovascular: RRR, Normal S1, Normal S2, without murmur Abdomen: soft, non-tender, non-distended, positive bowel sound Extremities: clear Neurological: no change Internal Medicine Assmt/Plan - Assessment Assessment: Severe Dementia. Agitation. Aggressive behavior. - Plan Plan: Continuation of care Continue present meds as directed Monitor labs, diet Psych followup Fall precaution Continue present care management Nutritional Asmnt/Malnutr-PDOC - Dietary Evaluation Malnutrition Findings (Please click <Entered> for more info): Nutritional Asmnt/Malnutrition Start: 09/16/18 14: 27 Text: Status: Complete Freq: Protocol: Document 09/16/18 14:28 SHERWING (Rec: 09/16/18 15:12 KATIE [email or web address]) Nutritional Asmnt/Malnutrition Patient General Information Nutritional Screening Moderate Risk Diagnosis psychosis NOS Pertinent Medical Hx/Surgical Hx HTN, DM, dyslipidemia Subjective Information Pt seen lying in bed, confused , non-verbal. Per EMR, PO intake 75-100%. Current Diet Order/ Nutrition Support CCHO, cardiac, no lactose Pertinent Medications lipitor, vit B12, lantus, insulin, humalog, culturelle, synthroid, glucophage, theragran Pertinent Labs 09/14 K 3.4, Glucose 133, POC 190 09/13 Cl 108, Cr 0.6, glucose 147, alb 3.3 Nutritional Hx/Data Height 1.7 m Height (Calculated Centimeters) 170.2 Current Weight (lbs) 74.389 kg Weight (Calculated Kilograms) 74.4 Weight (Calculated Grams) 76363.1 [place] Body Weight 148 Body Mass Index (BMI) 25.7 GI Symptoms GI Symptoms None Last BM 09/15 Difficult in: None Food Allergies Yes: lactose Skin Integrity/Comment: dryness Current %PO Good (75-100%) Estimated Nutritional Goals BEE in Kcals: Using Current wt Calories/Kcals/Kg 23-27 Kcals Calculated 3414-7699 Protein: Using Current wt Protein g/k.8 Protein Calculated 60 Fluid: ml 1725-2025ml (1ml/kcal) Nutritional Problem No current Nutrition Prob Problem N/A Malnutrition Alert Is there a minimum of two criteria No selected? Query Text:Check all the applicable criteria. A minimum of two criteria are recommended for diagnosis of either severe or non-severe malnutrition. Malnutrition Related to Morbid Obesity Malnutrition related to morbid obesity No Intervention/Recommendation Comments 1. Continue with CCHO, cardiac , no lactose diet as ordered. 2. Monitor PO intake, wt, labs and skin integrity 3. F/U as low risk in 7 days Expected Outcomes/Goals Expected Outcomes/Goals 1. PO intake to meet at least 75% of nutritional needs. 2. Wt stability, skin to remain intact, labs to approach WNL.
[2018-09-24] MEDS: INSULIN LISPRO SLIDING SCALE 100 UNITS/ML UNIT SUBQ SCH ×2 (06:39→12:27)
[2018-09-24] MEDS: Levothyroxine 0.05 Mg Tab PO SCH (06:40)
[2018-09-24] MEDS: Insulin Glargine 100 units/ml 10ml Vial SUBQ SCH (09:08)
[2018-09-24] MEDS: Lactobacillus Rhamnosus GG 15 Billion CFU CAP.SPRINK PO SCH (09:09)
[2018-09-24] MEDS: Multivitamin Tab PO SCH (09:09)
--- NOTE | 2018-09-24 10:20 | Progress Notes ---
DATE: 09/24/2018 SUBJECTIVE: Staff was spoken to. The patient is interviewed. Mood is noted to be less irritable. Affect is appropriate. No self-abusive behavior is reported today. The patient is currently on Depakote and has been able to tolerate the medication. Coping skills are noted to be fair at this time. No major behavioral problems are noted. However, the patient has short-term and long-term memory deficits. ASSESSMENT: The patient is stabilizing. PLAN: To discharge the patient today for follow-up on outpatient basis. PSYCHIATRIC# [id number]
--- NOTE | 2018-09-24 11:58 | Internal Medicine Prog Note ---
Internal Medicine Subjective - Subjective Service Date: 09/24/18 Patient is:: awake, confused (easily irritable but better, denies pain ), stares blankly, other (withdrawn.) Patient Complaints of:: other (Irritable mood, confused, selectively mute, slow and delayed.) Per staff patient has:: no adverse event, no episodes of fall, tolerating meds Internal Medicine Objective - Results Result Diagrams: 09/14/18 08:15 09/14/18 08:15 Recent Labs: Laboratory Last Values WBC 7.5 Th/cmm (4.8-10.8) 09/14/18 08:15 RBC 3.98 Mil/cmm (3.80-5.80) 09/14/18 08:15 Hgb 12.8 gm/dL (12-16) 09/14/18 08:15 Hct 38.0 % (41.0-60) L 09/14/18 08:15 MCV 95.4 fl (80-99) 09/14/18 08:15 MCH 32.1 pg (27.0-31.0) H 09/14/18 08:15 MCHC Differential 33.6 pg (28.0-36.0) 09/14/18 08:15 RDW 12.9 % (11.5-20.0) 09/14/18 08:15 Plt Count 147 Th/cmm (150-400) L 09/14/18 08:15 MPV 8.3 fl 09/14/18 08:15 Neutrophils % 69.2 % (40.0-80.0) 09/14/18 08:15 Lymphocytes % 19.3 % (20.0-50.0) L 09/14/18 08:15 Monocytes % 8.5 % (2.0-10.0) 09/14/18 08:15 Eosinophils % 2.8 % (0.0-5.0) 09/14/18 08:15 Basophils % 0.2 % (0.0-2.0) 09/14/18 08:15 ESR 54 mm/hr (0-20) H 09/14/18 08:15 Sodium 139 mEq/L (136-145) 09/14/18 08:15 Potassium 3.4 mEq/L (3.5-5.1) L 09/14/18 08:15 Chloride 106 mEq/L (98-107) 09/14/18 08:15 Carbon Dioxide 22.5 mEq/L (21.0-31.0) 09/14/18 08:15 Anion Gap 13.9 (7.0-16.0) 09/14/18 08:15 BUN 22 mg/dL (7-25) 09/14/18 08:15 Creatinine 0.7 mg/dL (0.7-1.3) 09/14/18 08:15 Est GFR ( Amer) TNP 09/14/18 08:15 Est GFR (Non-Af Amer) TNP 09/14/18 08:15 BUN/Creatinine Ratio 31.4 09/14/18 08:15 Glucose 133 mg/dL (70-105) H 09/14/18 08:15 POC Glucose 177 MG/DL (70 - 105) H 09/24/18 06:31 Uric Acid 4.1 mg/dL (4.4-7.6) L 09/14/18 08:15 Calcium 8.8 mg/dL (8.6-10.3) 09/14/18 08:15 Total Bilirubin 0.9 mg/dL (0.3-1.0) 09/13/18 12:04 AST 12 U/L (13-39) L 09/13/18 12:04 ALT 12 U/L (7-52) 09/13/18 12:04 Alkaline Phosphatase 47 U/L (34-104) 09/13/18 12:04 Total Protein 5.9 gm/dL (6.0-8.3) L 09/13/18 12:04 Albumin 3.3 gm/dL (4.2-5.5) L 09/13/18 12:04 Globulin 2.6 gm/dL 09/13/18 12:04 Albumin/Globulin Ratio 1.3 (1.0-1.8) 09/13/18 12:04 Triglycerides 78 mg/dL (<150) 09/13/18 12:04 Cholesterol 80 mg/dL (<200) 09/13/18 12:04 LDL Cholesterol Direct 40 mg/dL (75-193) L 09/13/18 12:04 HDL Cholesterol 29 mg/dL (23-92) 09/13/18 12:04 TSH 2.09 uIU/ml (0.34-5.60) 09/13/18 12:04 - Physical Exam Vitals and I&O: Vital Signs Temp 97.7 F 09/24/18 06:31 Pulse 76 09/24/18 09:09 Resp 19 09/24/18 08:00 BP 118/72 09/24/18 09:09 Pulse Ox 96 09/24/18 06:31 Intake & Output 09/23/18 09/24/18 09/24/18 18:59 06:59 18:59 Other: # Voids 3 Stool Characteristics Soft Active Medications: Current Medications Acetaminophen (Tylenol) 650 mg PO Q4HR PRN PRN Reason: Mild Pain / Temp above 100 Stop: 11/12/18 16:53 Al Hydrox/Mg Hydrox/Simethicone (Maalox) 30 ml PO Q4HR PRN PRN Reason: GI DISTRESS Stop: 11/12/18 16:53 Aspirin (Ecotrin) 81 mg PO [facility] Stop: 11/12/18 20:59 Last Admin: 09/23/18 21:24 Dose: 81 mg Atorvastatin Calcium (Lipitor) 40 mg PO HS [facility] Stop: 11/13/18 20:59 Last Admin: 09/23/18 21:25 Dose: 40 mg Cholecalciferol (Vitamin D3) 1,000 iu PO DAILY [facility] Stop: 11/13/18 08:59 Last Admin: 09/24/18 09:08 Dose: 1,000 iu Cyanocobalamin (Vitamin B12) 1,000 mcg PO DAILY [facility] Stop: 11/13/18 08:59 Last Admin: 09/24/18 09:09 Dose: 1,000 mcg Dextrose (D50w) 50 ml IVP PRN PRN PRN Reason: Blood Glucose less than 70 Stop: 11/12/18 20:22 Dextrose (Glutose 40%) 18.75 gm PO PRN PRN PRN Reason: Blood Glucose less than 70 Stop: 11/12/18 20:22 Divalproex Sodium (Depakote Dr) 375 mg PO BID [facility]; Protocol Stop: 11/17/18 08:59 Last Admin: 09/24/18 09:08 Dose: 375 mg Donepezil HCl (Aricept) 10 mg PO [facility] Stop: 11/12/18 20:59 Last Admin: 09/23/18 21:25 Dose: 10 mg Finasteride (Proscar) 5 mg PO DAILY [facility]; Protocol Stop: 11/13/18 08:59 Last Admin: 09/24/18 09:09 Dose: 5 mg Glucagon (Glucagen) 1 mg IM PRN PRN PRN Reason: Blood Glucose less than 70 Stop: 11/12/18 20:22 Insulin Glargine (Lantus Insulin) 5 units SUBQ QDPC [facility] Stop: 11/13/18 08:29 Last Admin: 09/24/18 09:08 Dose: Not Given Insulin Human Lispro (Humalog Insulin Sliding Scale) 0 units SUBQ ACHS [facility]; Protocol Stop: 11/12/18 20:59 Last Admin: 09/24/18 06:39 Dose: 2 units Lactobacillus Rhamnosus (Culturelle 15b) 1 each PO DAILY [facility] Stop: 11/13/18 10:59 Last Admin: 09/24/18 09:09 Dose: 1 each Levothyroxine Sodium (Synthroid) 0.05 mg PO DAILY@0730 [facility] Stop: 11/13/18 07:29 Last Admin: 09/24/18 06:40 Dose: 0.05 mg Loperamide HCl (Imodium) 2 mg PO DAILY [facility] Stop: 11/13/18 08:59 Last Admin: 09/24/18 09:09 Dose: 2 mg Lorazepam (Ativan) 0.5 mg PO Q4HR PRN; Protocol PRN Reason: Agitation Stop: 11/12/18 16:46 Last Admin: 09/20/18 21:04 Dose: 0.5 mg Losartan Potassium (Cozaar) 50 mg PO DAILY [facility] Stop: 11/13/18 08:59 Last Admin: 09/24/18 09:09 Dose: 50 mg Magnesium Hydroxide (Milk Of Magnesia) 30 ml PO HS PRN PRN Reason: Constipation Memantine (Namenda) 10 mg PO DAILY [facility] Stop: 11/13/18 08:59 Last Admin: 09/24/18 09:09 Dose: 10 mg Metformin HCl (Glucophage) 500 mg PO BID [facility] Stop: 11/12/18 16:59 Last Admin: 09/24/18 09:09 Dose: 500 mg Multivitamins/Vitamin C (Theragran) 1 tab PO DAILY [facility] Stop: 11/13/18 08:59 Last Admin: 09/24/18 09:09 Dose: 1 tab Oxybutynin Chloride (Ditropan) 5 mg PO HS [facility] Stop: 11/12/18 20:59 Last Admin: 09/23/18 21:26 Dose: 5 mg Zolpidem Tartrate (Ambien) 5 mg PO HS PRN PRN Reason: Insomnia Stop: 11/12/18 16:53 Last Admin: 09/23/18 21:26 Dose: 5 mg General: weak, other ( Confused.) HEENT: NC/AT, PERRLA Neck: Supple Lungs: CTAB Cardiovascular: RRR, Normal S1, Normal S2, without murmur Abdomen: soft, non-tender, non-distended, positive bowel sound Extremities: clear Neurological: no change Internal Medicine Assmt/Plan - Assessment Assessment: Severe Dementia. Agitation. cellulitis - Plan Plan: continue current plan of care Nutritional Asmnt/Malnutr-PDOC - Dietary Evaluation Malnutrition Findings (Please click <Entered> for more info): Nutritional Asmnt/Malnutrition Start: 09/16/18 14: 27 Text: Status: Complete Freq: Protocol: Document 09/16/18 14:28 LCHENG (Rec: 09/16/18 15:12 LCHENG [email or web address]) Nutritional Asmnt/Malnutrition Patient General Information Nutritional Screening Moderate Risk Diagnosis psychosis NOS Pertinent Medical Hx/Surgical Hx HTN, DM, dyslipidemia Subjective Information Pt seen lying in bed, confused , non-verbal. Per EMR, PO intake 75-100%. Current Diet Order/ Nutrition Support CCHO, cardiac, no lactose Pertinent Medications lipitor, vit B12, lantus, insulin, humalog, culturelle, synthroid, glucophage, theragran Pertinent Labs 09/14 K 3.4, Glucose 133, POC 190 09/13 Cl 108, Cr 0.6, glucose 147, alb 3.3 Nutritional Hx/Data Height 5 ft 7 in Height (Calculated Centimeters) 170.2 Current Weight (lbs) 164 lb Weight (Calculated Kilograms) 74.4 Weight (Calculated Grams) 80355.1 [place] Body Weight 148 Body Mass Index (BMI) 25.7 GI Symptoms GI Symptoms None Last BM 09/15 Difficult in: None Food Allergies Yes: lactose Skin Integrity/Comment: dryness Current %PO Good (75-100%) Estimated Nutritional Goals BEE in Kcals: Using Current wt Calories/Kcals/Kg 23-27 Kcals Calculated 8809-4138 Protein: Using Current wt Protein g/k.8 Protein Calculated 60 Fluid: ml 1725-202ml (1ml/kcal) Nutritional Problem No current Nutrition Prob Problem N/A Malnutrition Alert Is there a minimum of two criteria No selected? Query Text:Check all the applicable criteria. A minimum of two criteria are recommended for diagnosis of either severe or non-severe malnutrition. Malnutrition Related to Morbid Obesity Malnutrition related to morbid obesity No Intervention/Recommendation Comments 1. Continue with CCHO, cardiac , no lactose diet as ordered. 2. Monitor PO intake, wt, labs and skin integrity 3. F/U as low risk in 7 days Expected Outcomes/Goals Expected Outcomes/Goals 1. PO intake to meet at least 75% of nutritional needs. 2. Wt stability, skin to remain intact, labs to approach WNL.
--- NOTE | 2018-09-26 19:11 | Progress Notes ---
DATE: 09/23/2018 PSYCHOLOGY PROGRESS NOTE SUBJECTIVE: The patient is seen and is interviewed. Case is discussed with staff. The patient presents as less agitated on this visit. Staff reports there has been no self abusive behavior. The patient is tolerating the medication. The patient seems to be stabilizing. OBJECTIVE: Mood is stabilizing. Affect is mood congruent. Thought process is confused with memory deficits. The patient denied any hallucinations or delusions. The patient's behavior has become more goal oriented. ASSESSMENT AND PLAN: The patient appears to be stabilizing. We provided coping strategies for phase of life issues. We provided reality integration. We provided remotivation for the patient to stay compliant with all aspects of his care and treatment. No followup is indicated. The patient is scheduled to discharge today or tomorrow. Prognosis is guarded. JOB# [id number] JIM
--- NOTE | 2018-09-27 20:51 | Discharge Summary ---
DATE OF DISCHARGE: 09/24/2018 PSYCHIATRIC DISCHARGE SUMMARY IDENTIFYING DATA: The patient is a 73-year-old [facility]. JUSTIFICATION OF HOSPITALIZATION: The patient is admitted directly because of his self-abusive behavior and agitation. DIAGNOSES AT THE TIME OF ADMISSION: AXIS IA: Psychotic disorder, not otherwise specified. IB: Dementia and behavioral changes, secondary trait. AXIS II: None. AXIS III: As per Dr. Altman. HISTORY OF PRESENT ILLNESS: Please refer to 09/14/2018 dictation done by me. HOSPITAL COURSE AND RESPONSE TO TREATMENT: The patient has been observed on the inpatient unit, provided with supportive psychotherapy. The patient has been closely monitored. The patient has been provided with individual as well as family counseling. The patient has been most of the time nonverbal and has been resorting to self-abusive behavior. The patient has been given Ativan on a p.r.n. basis. The patient also has been placed on valproic acid, which was increased to 375 mg twice a day. With these medications, the patient was observed and was noted to be doing fairly well and the agitated behavior came under control and hence, the patient was discharged with recommendation that he is going to be seeking treatment on an outpatient basis by Dr. Gaines. MENTAL STATUS EXAMINATION AT THE TIME OF DISCHARGE: Noted to be stable. PROGNOSIS AT THE TIME OF DISCHARGE: Noted to be guarded. [facility]# [id number]
== END 2018-09-24 13:00 | disposition home or self-care (01) | DRG 885 ==
LOC: ER 11:13 → EDBD 11:13 → GERO 13:19
PROVIDERS: ADMIT Psychiatry & Neurology Psychiatry; ATTEND Psychiatry & Neurology Psychiatry
DX: F29 Unspecified psychosis not due to a substance or known physiological condition (principal); L03.116 Cellulitis of left lower limb; F02.81 Dementia in other diseases classified elsewhere, unspecified severity, with behavioral disturbance; I10 Essential (primary) hypertension; E78.5 Hyperlipidemia, unspecified; E11.9 Type 2 diabetes mellitus without complications; G30.9 Alzheimer's disease, unspecified; Z79.4 Long term (current) use of insulin
CPT/HCPCS: 36415-UA; 73562-TC-LT; 73562-TC-RT; 80048-TC; 80053-TC; 80061-TC; 82948-90; 83036-90; 84443-TC; 84550-TC; 85025-TC; 85652-TC; 93005; 97530; J1815; Z7610